=== PATIENT | male | born 1960 | race Caucasian/White ===

== ENCOUNTER → 2020-04-26 11:28 | Outpatient (BNVA) | payer SELFPAY | PROVIDERS: PCP Nurse Practitioner Family; Referring Provider Nurse Practitioner Family; Visit Provider Family Medicine Adult Medicine | DX: M96.1 Postlaminectomy syndrome, not elsewhere classified (principal); I71.9 Aortic aneurysm of unspecified site, without rupture; I10 Essential (primary) hypertension; M47.816 Spondylosis without myelopathy or radiculopathy, lumbar region; F17.200 Nicotine dependence, unspecified, uncomplicated ==

== ENCOUNTER → 2020-05-10 13:17 | Outpatient (BNVA) | payer BC, SELFPAY | PROVIDERS: PCP Nurse Practitioner Family; Visit Provider Family Medicine Adult Medicine | DX: Z76.89 Persons encountering health services in other specified circumstances (principal) ==

== ENCOUNTER → 2020-06-07 11:25 | Outpatient (BNVA) | payer BC, SELFPAY | PROVIDERS: PCP Nurse Practitioner Family; Visit Provider Family Medicine Adult Medicine | DX: Z76.89 Persons encountering health services in other specified circumstances (principal) ==

== ENCOUNTER → 2020-07-05 09:25 | Outpatient (BNVA) | payer BC, SELFPAY | PROVIDERS: Visit Provider Family Medicine Adult Medicine | DX: M47.816 Spondylosis without myelopathy or radiculopathy, lumbar region (principal); M96.1 Postlaminectomy syndrome, not elsewhere classified ==

== ENCOUNTER → 2020-08-04 08:43 | Outpatient (BNVA) | payer BC, SELFPAY | PROVIDERS: Visit Provider Family Medicine Adult Medicine | DX: Z76.89 Persons encountering health services in other specified circumstances (principal) ==

== ENCOUNTER → 2020-09-01 09:16 | Outpatient (BNVA) | payer BC, SELFPAY | PROVIDERS: Visit Provider Anesthesiology | DX: M47.816 Spondylosis without myelopathy or radiculopathy, lumbar region (principal); M96.1 Postlaminectomy syndrome, not elsewhere classified ==

== ENCOUNTER → 2020-09-29 09:50 | Outpatient (BNVA) | payer BC, SELFPAY | PROVIDERS: Visit Provider Family Medicine Adult Medicine ==

== ENCOUNTER → 2020-10-27 08:01 | Outpatient (BNVA) | payer BC, SELFPAY | PROVIDERS: Visit Provider Family Medicine Adult Medicine | DX: M47.816 Spondylosis without myelopathy or radiculopathy, lumbar region (principal); M96.1 Postlaminectomy syndrome, not elsewhere classified ==

== ENCOUNTER → 2020-11-03 11:18 | Outpatient (BNVA) | payer BC, SELFPAY | PROVIDERS: Visit Provider Family Medicine Adult Medicine ==

== ENCOUNTER → 2020-11-10 08:00 | Outpatient (BNVA) | payer BC, SELFPAY | PROVIDERS: Visit Provider Family Medicine Adult Medicine ==

== ENCOUNTER 2020-12-07 11:30 | Outpatient (REF) | payer BC, SELFPAY ==
[2020-12-07 14:20] LABS: Estimated Average Glucose 217 mg/dL; Hemoglobin A1c % 9.2 %
[2020-12-07 14:48] LABS: Alanine Aminotransferase 41 U/L (0-40); Albumin Level 3.7 g/dL (3.5-5.0); Alkaline Phosphatase 92 U/L (39-117); Anion Gap 14 (12-20); Aspartate Amino Transferase 17 U/L (5-37); Bilirubin Total 0.4 mg/dL (0.0-1.0); Blood Urea Nitrogen 27 mg/dL (9-16); Carbon Dioxide 26 mmol/L (22-29); Chloride 95 mmol/L (96-108); Estimated Glomerular Filt Rate 56; Glucose Random 405 mg/dL (60-115); Sodium 130 mmol/L (135-145); Total Protein 6.3 g/dL (6.5-8.0)
[2020-12-07 15:29] LABS: Prostate Specific Antigen 5.27 ng/mL (<0.05-4.0)
== END 2020-12-07 11:31 | disposition home or self-care (01) ==
LOC: HO.HMGCLDS 11:30
PROVIDERS: PCP Nurse Practitioner Family; Visit Provider Nurse Practitioner Family
DX: R30.0 Dysuria (principal); R39.198 Other difficulties with micturition; R81 Glycosuria; Z86.79 Personal history of other diseases of the circulatory system; Z98.890 Other specified postprocedural states; Z12.5 Encounter for screening for malignant neoplasm of prostate
CPT/HCPCS: 36415; 80053; 83036; 84153; 87086; 87088; 87186

== ENCOUNTER 2020-12-12 07:23 | Emergency (ER) | payer BC, SELFPAY ==
[2020-12-12 07:34] VITALS: BP 137/106; PULSE 115; RESP 16; TEMP 36.9; O2SAT 100; BMI 31.3
--- NOTE | 2020-12-12 07:53 | ED.ABDPAIN ---
HPI - Abdominal Pain General Chief Complaint: Abdominal Pain Stated Complaint: VOMITING Time Seen by Provider: 12/12/20 07:53 Source: patient Mode of arrival: ambulatory Limitations: no limitations History of Present Illness HPI narrative: Abdominal pain with N/V since starting Metformin 4 days ago MD elicited complaint: abdominal pain Onset (ago): day(s) Pain Consistency: constant Location: diffuse Severity: moderate Quality: cramping Associated symptoms: nausea and vomiting Related Data Home Medications Medication Instructions Recorded Confirmed aspirin 81 mg tablet,delayed 81 mg PO DAILY 04/26/20 12/07/20 release cholecalciferol (vitamin D3) 50 50 mcg PO DAILY 11/14/20 12/07/20 mcg (2,000 unit) capsule cyanocobalamin (vitamin B-12) 1,000 mcg PO DAILY 11/14/20 12/07/20 1,000 mcg capsule Previous Rx's Medication Instructions Recorded gabapentin 400 mg capsule 400 mg PO TID PRN #90 cap 07/07/20 lisinopril 5 mg tablet 5 mg PO DAILY #90 tab 07/28/20 naloxegol 25 mg tablet 25 mg PO QAM #90 tab 10/27/20 naloxone 4 mg/actuation nasal spray 4 mg INTRANASAL Q2M PRN 1 Days #2 10/27/20 ea buprenorphine 8 mg-naloxone 2 mg 1 film SUBLINGUAL Q12H 30 Days #60 11/03/20 sublingual film ea ibuprofen 800 mg tablet 800 mg PO Q12H 30 Days #60 tab 11/10/20 dexamethasone 4 mg tablet 4 mg PO BID 30 Days #30 tab 11/25/20 baclofen 10 mg tablet 10 mg PO Q8H 90 Days #270 tab 12/05/20 alcohol swabs 1 pad TOPICAL BID 90 Days #100 ea 12/07/20 blood sugar diagnostic #100 ea 12/07/20 blood-glucose meter #1 ea 12/07/20 buspirone 15 mg tablet 15 mg PO BID #30 tab 12/07/20 lancets 28 gauge #100 ea 12/07/20 metformin 500 mg tablet 500 mg PO BID 30 Days #60 tab 12/07/20 simvastatin 40 mg tablet 40 mg PO BEDTIME #90 tab 12/08/20 sulfamethoxazole 800 1 tab PO BID 3 Days #6 tab 12/08/20 mg-trimethoprim 160 mg tablet Allergies Allergy/AdvReac Type Severity Reaction Status Date / Time acetaminophen [From Tylenol] Allergy Unknown nausea/stomach Verified 12/07/20 10:57 pains codeine [Codeine] Allergy Unknown N/V Verified 12/07/20 10:57 Review of Systems Constitutional: Reports no additional constitutional complaints Eyes: Reports no additional eye complaints Denies dizziness Cardiovascular: Reports no additional cardiovascular complaints Respiratory: Reports as per HPI Gastrointestinal: Reports no additional gastrointestinal complaints Musculoskeletal: Reports no additional musculoskeletal complaints Skin/Breast: Denies rash Reports system reviewed and no additional complaints, except as documented, Denies dizziness and Denies Sensory deficit (Neuro) Psychiatric: Denies anxiety Physical Exam Vital Signs: Vital Signs: Last Vital Signs Temp 98.5 F 12/12/20 08:44 Pulse 78 12/12/20 08:44 Resp 17 12/12/20 08:44 BP 154/96 H 12/12/20 08:44 Pulse Ox 97 12/12/20 08:44 Body Mass Index 31.3 Const: General: healthy appearing Nutritional Appearance: average body habitus Orientation/consciousness: oriented to person and patient oriented x3 Limitations: no limitations HENMT: Other: Dry oral pharynx Head: Yes normal to inspection Ears: external ears normal General nose exam: Normal external nose present Mouth: oropharynx normal Throat: Yes posterior oropharynx normal Eyes: General: appearance normal, both eyes and all related structures Neck: Other: supple Neck: Yes normal visual inspection Chest: Chest palpation & inspection: normal inspection of the chest Resp: Auscultation: clear to auscultation bilaterally Cardio: Jugular venous distension: no JVD Rate: regular rate Rhythm: regular rhythm Heart sounds: S1 normal heart sound present and S2 normal heart sound present GI: Inspection: Yes normal to inspection Palpation (GI): Soft to palpation, nontender and No hepatosplenomegaly present Auscultation: normal bowel sounds : General: Yes no CVA tenderness Back/Spine/Pelvis: Back: no CVA tenderness Skin: General skin exam: no rashes or lesions noted Neuro: General: oriented to person and patient oriented x3 Cranial nerves: Yes CN's II-XII intact bilaterally Motor exam (neuro): 5/5 motor strength present throughout Sensory Exam: No Sensory deficit (Neuro) Extrem: General: Yes normal to inspection Psych: Appearance: grossly normal Course Course Course Narrative: patient feeling much better, urinating, abdomen nontender, tolerating po. Will dc on zofran and have patient stop metformin MDM - Abdominal Pain Lab Data Result diagrams: 12/12/20 08:14 12/12/20 08:14 Labs: Lab Results 12/12/20 12/12/20 Range/Units 08:14 08:14 WBC 15.3 H (4.8-10.8) X10*3/uL RBC 5.55 (4.60-5.80) X10*6/uL Hgb 16.7 (14.0-18.0) g/dl Hct 47.2 (42-52) % MCV 85.0 (80-98) fL MCH 30.1 (27.0-33.0) pg MCHC 35.4 (31.0-36.0) g/dl RDW 13.0 (11.0-16.0) % Plt Count 257 (160-400) X10*3/uL MPV 9.3 L (9.4-12.4) fL Immature Gran % (Auto) 1.0 H (0.0-0.4) % Neut % (Auto) 73.3 H (45-73) % Lymph % (Auto) 19.2 L (20-40) % Luna % (Auto) 6.2 (2-11) % Eos % (Auto) 0.2 (0-4) % Baso % (Auto) 0.1 (0-2) % Lymph # (Auto) 2.9 (1.2-4.9) X10*3/uL Luna # (Auto) 1.0 (0.1-1.2) X10*3/uL Eos # (Auto) 0.0 (0.0-0.4) X10*3/uL Baso # (Auto) 0.0 (0.0-0.2) X10*3/uL Abs Immat Gran (auto) 0.15 H (0.00-0.03) X10*3/uL Absolute Neuts (auto) 11.2 H (2.0-8.3) X10*3/uL Absolute Nucleated RBC 0.000 (0.0-0.012) X10*3/uL Nucleated RBC % (auto) 0.0 (0.0-0.2) /100WBC Sodium 129 L (135-145) mmol/L Potassium 4.4 (3.3-5.1) mmol/L Chloride 96 (96-108) mmol/L Carbon Dioxide 22 (22-29) mmol/L Anion Gap 15 (12-20) BUN 23 H (9-16) mg/dL Creatinine 1.26 (0.5-1.4) mg/dL Estim Creat Clear Calc 77.0 Estimated GFR 58 Random Glucose 230 H D (60-115) mg/dL Calcium 9.3 (8.4-10.2) mg/dL Total Bilirubin 1.1 H (0.0-1.0) mg/dL Direct Bilirubin 0.4 (0.0-0.5) mg/dL AST 20 (5-37) U/L ALT 43 H (0-40) U/L Alkaline Phosphatase 89 (39-117) U/L Total Protein 6.5 (6.5-8.0) g/dL Albumin 3.8 (3.5-5.0) g/dL Lipase 50 (8-78) U/L Discharge Plan Discharge Clinical Impression: Medication adverse effect Qualifiers: Encounter type: initial encounter Qualified Code(s): T50.905A - Adverse effect of unspecified drugs, medicaments and biological substances, initial encounter Patient Disposition: Home, Self-Care Additional Instructions: stop metformin and discuss with your doctor Prescriptions: No Action gabapentin 400 mg capsule 400 mg PO TID PRN (Reason: for pain) Qty: 90 RF: 3 lisinopril 5 mg tablet 5 mg PO DAILY Qty: 90 RF: 1 Movantik 25 mg tablet 25 mg PO QAM Qty: 90 RF: 0 dexamethasone 4 mg tablet 4 mg PO BID 30 Days Qty: 30 RF: 0 baclofen 10 mg tablet 10 mg PO Q8H 90 Days Qty: 270 RF: 1 (DME) blood-glucose meter [FreeStyle Lite Meter] Kit See Rx Instructions .ROUTE .MEDSUPPLY Qty: 1 RF: 0 (DME) FreeStyle Lite Strips Strip See Rx Instructions .ROUTE .MEDSUPPLY Qty: 100 RF: 1 (DME) lancets [FreeStyle Lancets] 28 gauge misc See Rx Instructions .ROUTE .MEDSUPPLY Qty: 100 RF: 1 alcohol swabs [Alcohol Prep Pads] Pads, Medicated 1 pad topical BID 90 Days Qty: 100 RF: 1 metformin 500 mg tablet 500 mg PO BID 30 Days Qty: 60 RF: 1 simvastatin 40 mg tablet 40 mg PO BEDTIME Qty: 90 RF: 0 sulfamethoxazole-trimethoprim [Bactrim DS] 800-160 mg tablet 1 tab PO BID 3 Days Qty: 6 RF: 0 cholecalciferol (vitamin D3) 50 mcg (2,000 unit) capsule 50 mcg PO DAILY RF: 0 cyanocobalamin (vitamin B-12) 1,000 mcg capsule 1,000 mcg PO DAILY RF: 0 buspirone 15 mg tablet 15 mg PO BID Qty: 30 RF: 3 Narcan 4 mg/actuation spray,non-aerosol 4 mg intranasal Q2M PRN (Reason: opioid overdose) 1 Days Qty: 2 RF: 1 aspirin [Adult Aspirin Regimen] 81 mg tablet,delayed release (DR/EC) 81 mg PO DAILY RF: 0 buprenorphine-naloxone 8-2 mg film 1 film sublingual Q12H 30 Days Qty: 60 RF: 1 ibuprofen 800 mg tablet 800 mg PO Q12H 30 Days Qty: 60 RF: 1 Referrals: Silvano Tejada, DIONE- [Primary Care Provider] - 2 days [facility] Past Medical History Medical History Aneurysm Epilepsia Failed back syndrome, lumbar HTN (hypertension) Lumbar spondylosis Smoker Surgical History H/O shoulder surgery History of cholecystectomy Previous back surgery Family History Family History Father Brain aneurysm Mother Cirrhosis Sister History of quadruple bypass Diabetes mellitus Brother No problems noted. Brother No problems noted. Brother No problems noted. 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
[2020-12-12] MEDS: ondansetron HCL 4 MG/2 ML VIAL IVPUSH (08:17)
[2020-12-12] MEDS: 0.9 % Sodium Chloride 1,000 ML 999 ML IVCONT ×2 (08:18→09:28)
[2020-12-12 08:19] LABS: MANUAL DIFF FLAG NO
[2020-12-12 08:35] LABS: Basophils Percent Auto 0.1 % (0-2); Eosinophils Percent Auto 0.2 % (0-4); Hematocrit 47.2 % (42-52); Hemoglobin 16.7 g/dl (14.0-18.0); Imm Gran Abs Auto 0.15 X10*3/uL (0.00-0.03); Lymphocytes Absolute Auto 2.9 X10*3/uL (1.2-4.9); Lymphocytes Percent Auto 19.2 % (20-40); Mean Corpuscular HGB Conc 35.4 g/dl (31.0-36.0); Mean Corpuscular Hemoglobin 30.1 pg (27.0-33.0); Mean Platelet Volume 9.3 fL (9.4-12.4); Monocytes Percent Auto 6.2 % (2-11); Neutrophils Absolute Auto 11.2 X10*3/uL (2.0-8.3); Neutrophils Percent Auto 73.3 % (45-73); Platelet Count 257 X10*3/uL (160-400); Red Blood Count 5.55 X10*6/uL (4.60-5.80); White Blood Count 15.3 X10*3/uL (4.8-10.8)
[2020-12-12 08:44] VITALS: BP 154/96; PULSE 78; RESP 17; TEMP 36.9; O2SAT 97
[2020-12-12 08:46] LABS: Alanine Aminotransferase 43 U/L (0-40); Albumin Level 3.8 g/dL (3.5-5.0); Alkaline Phosphatase 89 U/L (39-117); Anion Gap 15 (12-20); Aspartate Amino Transferase 20 U/L (5-37); Bilirubin Direct 0.4 mg/dL (0.0-0.5); Bilirubin Total 1.1 mg/dL (0.0-1.0); Blood Urea Nitrogen 23 mg/dL (9-16); Calcium 9.3 mg/dL (8.4-10.2); Carbon Dioxide 22 mmol/L (22-29); Chloride 96 mmol/L (96-108); Estimated Glomerular Filt Rate 58; Glucose Random 230 mg/dL (60-115); Lipase 50 U/L (8-78); Potassium 4.4 mmol/L (3.3-5.1); Sodium 129 mmol/L (135-145); Total Protein 6.5 g/dL (6.5-8.0)
== END 2020-12-12 11:18 | disposition home or self-care (01) ==
PROVIDERS: Emergency Provider Emergency Medicine; PCP Nurse Practitioner Family
DX: R11.2 Nausea with vomiting, unspecified (principal); R10.9 Unspecified abdominal pain; T38.3X5A Adverse effect of insulin and oral hypoglycemic [antidiabetic] drugs, initial encounter; Y92.039 Unspecified place in apartment as the place of occurrence of the external cause; E11.9 Type 2 diabetes mellitus without complications; I10 Essential (primary) hypertension; F17.210 Nicotine dependence, cigarettes, uncomplicated
CPT/HCPCS: 36415; 80048; 80076; 83690; 85025; 96361; 96374; 99284; J2405

== ENCOUNTER → 2020-12-20 09:19 | Outpatient (BNVA) | payer BC, SELFPAY | PROVIDERS: PCP Nurse Practitioner Family; Visit Provider Family Medicine Adult Medicine ==

== ENCOUNTER → 2021-01-17 09:25 | Outpatient (BNVA) | payer BC, SELFPAY | PROVIDERS: PCP Nurse Practitioner Family; Visit Provider Family Medicine Adult Medicine | DX: M47.816 Spondylosis without myelopathy or radiculopathy, lumbar region (principal); M96.1 Postlaminectomy syndrome, not elsewhere classified ==

== ENCOUNTER 2021-02-08 15:34 | Emergency (ER) | payer BC, SELFPAY ==
--- NOTE | ~2021-02-08 | US_ITS ---
EXAMINATION: US SCROTUM CLINICAL INFORMATION: Rule out torsion. Pain and swelling.. COMPARISON: None TECHNIQUE: A sonogram of the scrotum was performed assessing eisenberg-scale appearance and color Doppler flow. Spectral Doppler analysis of the arterial and venous flow were performed in the testes bilaterally. FINDINGS: RIGHT: Right testicle measures 3.7 x 3.4 x 3.2 cm, volume 21 mL. No focal testicular parenchymal lesions are visualized. Spectral Doppler analysis of the arterial and venous flow is normal in the right testis. The right epididymis is enlarged and hypervascular suggestive of epididymitis. There is a small right hydrocele. There is no right varicocele. LEFT: Left testicle measures 3.5 x 2.7 x 3.3 cm, volume 16 mL. No focal testicular parenchymal lesions are visualized. Spectral Doppler analysis of the arterial and venous flow is normal in the left testis. Left epididymal head is normal in size. No left hydrocele or varicocele is seen. Left epididymal Doppler flow is normal. US/US scrotum doppler IMPRESSION: No evidence of torsion. Right epididymitis and small right hydrocele.
[2021-02-08 15:40] VITALS: BP 141/84; PULSE 114; RESP 22; TEMP 36.7; O2SAT 97; BMI 36.6
--- NOTE | 2021-02-08 19:05 | ED_ITS ---
HPI - Male Genitourinary General Chief complaint: Urogenital-Male Stated complaint: Groin pain Time Seen by Provider: 02/08/21 19:05 Related Data Home Medications Medication Instructions Recorded Confirmed aspirin 81 mg tablet,delayed 81 mg PO DAILY 04/26/20 01/12/21 release cyanocobalamin (vitamin B-12) 1,000 mcg PO DAILY 11/14/20 01/12/21 1,000 mcg capsule cholecalciferol (vitamin D3) 50 50 mcg PO DAILY 01/12/21 01/12/21 mcg (2,000 unit) capsule famotidine 20 mg tablet 20 mg PO DAILY 01/12/21 01/12/21 Previous Rx's Medication Instructions Recorded gabapentin 400 mg capsule 400 mg PO TID PRN #90 cap 07/07/20 naloxone 4 mg/actuation nasal spray 4 mg INTRANASAL Q2M PRN 1 Days #2 10/27/20 ea alcohol swabs 1 pad TOPICAL BID 90 Days #100 ea 12/07/20 blood sugar diagnostic #100 ea 12/07/20 blood-glucose meter #1 ea 12/07/20 lancets 28 gauge #100 ea 12/07/20 simvastatin 40 mg tablet 40 mg PO BEDTIME #90 tab 12/08/20 cyclobenzaprine 10 mg tablet 10 mg PO TID 30 Days #90 tab 12/26/20 ibuprofen 800 mg tablet 800 mg PO Q12H 30 Days #60 tab 01/02/21 glipizide 5 mg tablet 5 mg PO BID 30 Days #60 tab 01/04/21 hydroxyzine HCl 50 mg tablet 50 mg PO BID PRN 30 Days #60 tab 01/12/21 buprenorphine HCl 75 mcg buccal 75 mcg BUCCAL Q12H 30 Days #60 ea 01/17/21 film oxycodone 5 mg tablet 5 mg PO Q12H PRN 30 Days #60 tab 01/17/21 lisinopril 5 mg tablet 5 mg PO DAILY #90 tab 01/24/21 naloxegol 25 mg tablet 25 mg PO QAM #90 tab 01/24/21 ibuprofen 600 mg PO Q8H PRN #20 tab 02/08/21 levofloxacin 500 mg PO DAILY #10 tab 02/08/21 tamsulosin [Flomax] 0.4 mg PO BEDTIME #5 cap 02/08/21 Allergies Allergy/AdvReac Type Severity Reaction Status Date / Time acetaminophen [From Tylenol] Allergy Unknown nausea/stomach Verified 02/08/21 15:42 pains codeine [Codeine] Allergy Unknown N/V Verified 02/08/21 15:42 Review of Systems Review of Systems: Constitutional : No Weight loss, No Fever, No Chills, No Night Sweats, No Fatigue, No Malaise ENT/Mouth : No Hearing loss, No Ear Pain, No Nasal Congestion, No Sinus Pain, No Hoarseness, No sore throat, No Rhinorrhea, No Swallowing Difficulty Eyes: No Eye Pain, No Swelling, No Redness, No Foreign Body, No Discharge, No Vision Changes Cardiovascular : No Chest Pain, No SOB, Respiratory : No Cough, No Sputum, No Wheezing, Gastrointestinal : No Nausea, No Vomiting, No Diarrhea, No Constipation, No abdominal Pain, Genitourinary : no irregular bleeding, No Dysuria, No Urinary Frequency, No Hematuria, No Urinary Incontinence, No Urgency, No Flank Pain, No Urinary Flow Changes, No Hesitancy Musculoskeletal : No joint pain, No Myalgias, No Joint Swelling Skin : No Skin Lesions, No rash Neuro : No Weakness, No Numbness, No Paresthesias, No Loss of Consciousness, No Dizziness, No Headache Psych : No Anxiety/Panic, No Depression, No SI/HI/AH/VH, No Social Issues, Heme/Lymph: No Bruising, No Bleeding,No Lymphadenopathy Endocrine : No Polyuria, No Polydipsia, No Temperature Intolerance Yes all other systems are reviewed and are negative FOR[facility]LY [facility] Past Medical History Medical History AAA (abdominal aortic aneurysm) Aneurysm Epilepsia Failed back syndrome, lumbar HTN (hypertension) Lumbar spondylosis Smoker Surgical History H/O shoulder surgery History of cholecystectomy Previous back surgery Family History Family History Father Brain aneurysm Mother Cirrhosis Sister History of quadruple bypass Diabetes mellitus Brother No problems noted. Brother No problems noted. Brother No problems noted. 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 Physical Exam Vital Signs: Vital Signs: Last Vital Signs Temp 98.0 F 02/08/21 15:40 Pulse 114 H 02/08/21 15:40 Resp 22 H 02/08/21 15:40 BP 141/84 H 02/08/21 15:40 Pulse Ox 97 02/08/21 15:40 Body Mass Index 36.6 Const: General: healthy appearing, no acute distress and well developed Nutritional Appearance: well nourished Orientation/consciousness: patient oriented x3 Neck: Neck: Yes normal visual inspection, Yes full ROM and Yes trachea midline Thyroid: Thyroid normal Resp: Auscultation: clear to auscultation bilaterally Cardio: Rate: regular rate Rhythm: regular rhythm GI: Inspection: Yes normal to inspection and No distended Palpation (GI): No hepatosplenomegaly present Auscultation: normal bowel sounds : General: Yes no CVA tenderness Scrotum: edematous and Hydrocele present Back/Spine/Pelvis: Back: no CVA tenderness Skin: General skin exam: elasticity normal, turgor normal and dry skin Neuro: General: patient oriented x3 Course Course Course Narrative: 60 years old male with past medical history of diabetes, lumbar spondylosis, hypertension, difficulty urinating, status post AAA repair is here today for complaining of right testicle swelling and pain. Will send patient for ultrasound to rule out torsion. Patient denies any other symptoms except for difficulty urinating. He reports that he has appointment with his urologist in February. He states that he was diagnosed with enlarged prostate by his PCP. Differential diagnosis epididymitis, bacterial infection, hydrocele or testicular torsion. Reevaluation(s) Reevaluation #1: Ultrasound negative for Testicular torsion, epididymitis and hydrocele. Will medicate patient with levofloxacin and ibuprofen. Patient will also get Flomax for difficulty the of urinating. He will follow up with urologist tomorrow. I will give him script for Flomax for 5 days as well as script for levofloxacin for 10 days. He can take ibuprofen for pain and inflammation. He is agreeable to plan of care and verbalizes understanding of instructions. He was given the opportunity to ask questions and all questions answered. MDM - Male Genitourinary Imaging Data scrotal ultrasound: Radiologist's impression: FINDINGS: RIGHT: Right testicle measures 3.7 x 3.4 x 3.2 cm, volume 21 mL. No focal testicular parenchymal lesions are visualized. Spectral Doppler analysis of the arterial and venous flow is normal in the right testis. The right epididymis is enlarged and hypervascular suggestive of epididymitis. There is a small right hydrocele. There is no right varicocele. LEFT: Left testicle measures 3.5 x 2.7 x 3.3 cm, volume 16 mL. No focal testicular parenchymal lesions are visualized. Spectral Doppler analysis of the arterial and venous flow is normal in the left testis. Left epididymal head is normal in size. No left hydrocele or varicocele is seen. Left epididymal Doppler flow is normal. Discharge Plan Discharge Clinical Impression: Difficulty urinating, Epididymitis Hydrocele Qualifiers: Hydrocele type: unspecified Qualified Code(s): N43.3 - Hydrocele, unspecified Patient Disposition: Home, Self-Care Instructions: Epididymitis (ED), Scrotal Pain (ED) Additional Instructions: You were seen here today for right scrotal pain. Ultrasound was negative for torsion they found to infection that needs to be treated with antibiotics. He received 1st dose in the emergency department. You also received medication that will help you urinate and anti-inflammatory medication to help with pain and decrease the swelling. He will be giving a dose of antibiotic for 10 days. I will also give you medication that will help you increase your urine flow. Please follow-up with urologist tomorrow for appointment in the next 2-3 days. However if your symptoms will not get better or if you will develop any additional concerning symptoms please return to emergency department. Prescriptions: New levofloxacin 500 mg tablet 500 mg PO DAILY Qty: 10 RF: 0 tamsulosin [Flomax] 0.4 mg capsule 0.4 mg PO BEDTIME Qty: 5 RF: 0 ibuprofen 600 mg tablet 600 mg PO Q8H PRN (Reason: pain) Qty: 20 RF: 0 No Action gabapentin 400 mg capsule 400 mg PO TID PRN (Reason: for pain) Qty: 90 RF: 3 (DME) blood-glucose meter [FreeStyle Lite Meter] Kit See Rx Instructions .ROUTE .MEDSUPPLY Qty: 1 RF: 0 (DME) FreeStyle Lite Strips Strip See Rx Instructions .ROUTE .MEDSUPPLY Qty: 100 RF: 1 (DME) lancets [FreeStyle Lancets] 28 gauge misc See Rx Instructions .ROUTE .MEDSUPPLY Qty: 100 RF: 1 alcohol swabs [Alcohol Prep Pads] Pads, Medicated 1 pad topical BID 90 Days Qty: 100 RF: 1 simvastatin 40 mg tablet 40 mg PO BEDTIME Qty: 90 RF: 0 ibuprofen 800 mg tablet 800 mg PO Q12H 30 Days Qty: 60 RF: 1 glipizide 5 mg tablet 5 mg PO BID 30 Days Qty: 60 RF: 2 hydroxyzine HCl 50 mg tablet 50 mg PO BID PRN (Reason: anxiety) 30 Days Qty: 60 RF: 3 lisinopril 5 mg tablet 5 mg PO DAILY Qty: 90 RF: 0 Movantik 25 mg tablet 25 mg PO QAM Qty: 90 RF: 0 cyanocobalamin (vitamin B-12) 1,000 mcg capsule 1,000 mcg PO DAILY RF: 0 cholecalciferol (vitamin D3) 50 mcg (2,000 unit) capsule 50 mcg PO DAILY RF: 0 famotidine 20 mg tablet 20 mg PO DAILY RF: 0 Narcan 4 mg/actuation spray,non-aerosol 4 mg intranasal Q2M PRN (Reason: opioid overdose) 1 Days Qty: 2 RF: 1 cyclobenzaprine 10 mg tablet 10 mg PO TID 30 Days Qty: 90 RF: 1 oxycodone 5 mg tablet 5 mg PO Q12H PRN (Reason: pain) 30 Days Qty: 60 RF: 0 [place] 75 mcg film 75 mcg buccal Q12H 30 Days Qty: 60 RF: 0 aspirin [Adult Aspirin Regimen] 81 mg tablet,delayed release (DR/EC) 81 mg PO DAILY RF: 0 Referrals: Cristhian Rodriguez MD [Physician] - 2 days Stand Alone Forms: Work/School Release Interventions: ED Discharge Assessment Last Done: 02/08/21 20:07 Discharge Date/Time: 02/08/21 20:08
[2021-02-08] MEDS: Tamsulosin HCL 0.4 MG CAPSULE PO (20:00)
[2021-02-08] MEDS: Ibuprofen 600 MG TABLET PO (20:00)
[2021-02-08] MEDS: levoFLOXacin 500 MG TABLET PO (20:03)
== END 2021-02-08 20:08 | disposition home or self-care (01) ==
PROVIDERS: Emergency Provider Emergency Medicine; PCP Nurse Practitioner Family
DX: N45.1 Epididymitis (principal); N43.3 Hydrocele, unspecified; N40.0 Benign prostatic hyperplasia without lower urinary tract symptoms; I10 Essential (primary) hypertension; E11.9 Type 2 diabetes mellitus without complications; Z79.82 Long term (current) use of aspirin; Z79.899 Other long term (current) drug therapy
CPT/HCPCS: 93975; 99283; 99284

== ENCOUNTER → 2021-02-16 09:21 | Outpatient (BNVA) | payer BC, SELFPAY | PROVIDERS: PCP Nurse Practitioner Family; Visit Provider Family Medicine Adult Medicine ==

== ENCOUNTER 2021-03-16 10:06 | Outpatient (REF) | payer BC, SELFPAY ==
[2021-03-16 17:03] LABS: Glucose Urine UA NEG (NEG); Leukocyte Esterase Urine 1+ (NEG); Nitrite Urine NEG (NEG); UACC Culture Trigger YES; Urine Blood NEG (NEG); Urine Ketones NEG (NEG); Urine Protein NEG (NEG-TRACE)
[2021-03-16 17:10] LABS: Estimated Average Glucose 120 mg/dL; Hemoglobin A1c % 5.8 %
[2021-03-16 17:13] LABS: Appearance Urine CLEAR; Color Urine YELLOW
[2021-03-16 17:31] LABS: Oval Fat Bodies Urine NOTED; RBC Urine 0 /HPF (0); Squamous Epithelial Cell Urine 1+ /LPF
[2021-03-16 17:41] LABS: Creatinine Urine 189.37 mg/dL; Microalbum/Creatinine Ratio Ur 10.5 ug/mg cr
[2021-03-16 17:45] LABS: Alanine Aminotransferase 15 U/L (0-40); Alkaline Phosphatase 80 U/L (39-117); Anion Gap 13 (12-20); Aspartate Amino Transferase 19 U/L (5-37); Bilirubin Total 0.7 mg/dL (0.0-1.0); Blood Urea Nitrogen 15 mg/dL (9-16); Calcium 9.1 mg/dL (8.4-10.2); Carbon Dioxide 28 mmol/L (22-29); Chloride 103 mmol/L (96-108); Cholesterol 151 mg/dL; Estimated Glomerular Filt Rate > 60; Glucose Fasting 93 mg/dL (60-99); HDL Cholesterol 42 mg/dL; LDL Cholesterol Calculated 90 mg/dl; Potassium 4.9 mmol/L (3.3-5.1); Sodium 139 mmol/L (135-145); Triglycerides 98 mg/dL
[2021-03-16 17:59] LABS: Prostate Specific Antigen Scr 1.89 ng/mL (<0.05-4.0); TSH reflex Free T4 0.69 uIU/mL (0.32-4.0)
[2021-03-16 18:05] LABS: Prostate Specific Antigen 1.75 ng/mL (<0.05-4.0)
[2021-03-23 21:26] LABS: Testosterone, Free 54.3 pg/mL (35.0-155.0); Testosterone, Total 485 ng/dL (250-1100)
== END 2021-03-16 10:07 | disposition home or self-care (01) ==
LOC: HO.HMGCLDS 10:06
PROVIDERS: PCP Nurse Practitioner Family; Visit Provider Urology
DX: R97.20 Elevated prostate specific antigen [PSA] (principal); E29.1 Testicular hypofunction; Z12.5 Encounter for screening for malignant neoplasm of prostate; Z00.00 Encounter for general adult medical examination without abnormal findings; E11.9 Type 2 diabetes mellitus without complications; N40.1 Benign prostatic hyperplasia with lower urinary tract symptoms; N13.8 Other obstructive and reflux uropathy
CPT/HCPCS: 36415; 80053; 80061; 81001; 81003; 82043; 83036; 84153; 84402; 84403; 84443; 87086

== ENCOUNTER → 2021-03-21 10:17 | Outpatient (BNVA) | payer BC, SELFPAY | PROVIDERS: PCP Nurse Practitioner Family; Visit Provider Family Medicine Adult Medicine | DX: M47.816 Spondylosis without myelopathy or radiculopathy, lumbar region (principal); M96.1 Postlaminectomy syndrome, not elsewhere classified ==

== ENCOUNTER → 2021-04-18 08:24 | Outpatient (BNVA) | payer BC, SELFPAY | PROVIDERS: PCP Nurse Practitioner Family; Visit Provider Family Medicine Adult Medicine | DX: M47.816 Spondylosis without myelopathy or radiculopathy, lumbar region (principal); M96.1 Postlaminectomy syndrome, not elsewhere classified ==

== ENCOUNTER 2021-05-16 08:53 | Outpatient (REF) | payer BC, SELFPAY ==
[2021-05-16 10:41] LABS: MANUAL DIFF FLAG NO
[2021-05-16 11:13] LABS: Appearance Urine CLEAR; Color Urine YELLOW; Glucose Urine UA NEG (NEG); Leukocyte Esterase Urine NEG (NEG); Nitrite Urine NEG (NEG); Urine Blood NEG (NEG); Urine Ketones NEG (NEG); Urine Protein NEG (NEG-TRACE)
[2021-05-16 11:17] LABS: Basophils Percent Auto 0.2 % (0-2); Eosinophils Absolute Auto 0.1 X10*3/uL (0.0-0.4); Eosinophils Percent Auto 1.1 % (0-4); Hematocrit 43.3 % (42-52); Hemoglobin 14.3 g/dl (14.0-18.0); Imm Gran Abs Auto 0.05 X10*3/uL (0.00-0.03); Imm Gran Pct Auto 0.4 % (0.0-0.4); Lymphocytes Absolute Auto 1.9 X10*3/uL (1.2-4.9); Lymphocytes Percent Auto 16.9 % (20-40); Mean Corpuscular Hemoglobin 28.9 pg (27.0-33.0); Mean Corpuscular Volume 87.5 fL (80-98); Mean Platelet Volume 9.7 fL (9.4-12.4); Monocytes Absolute Auto 0.9 X10*3/uL (0.1-1.2); Monocytes Percent Auto 7.9 % (2-11); Neutrophils Absolute Auto 8.3 X10*3/uL (2.0-8.3); Neutrophils Percent Auto 73.5 % (45-73); Platelet Count 260 X10*3/uL (160-400); Red Blood Count 4.95 X10*6/uL (4.60-5.80); Red Cell Distribution Width 13.9 % (11.0-16.0); White Blood Count 11.3 X10*3/uL (4.8-10.8)
[2021-05-16 12:16] LABS: Prostate Specific Antigen 1.54 ng/mL (<0.05-4.0)
[2021-05-16 12:22] LABS: Alanine Aminotransferase 11 U/L (0-40); Albumin Level 4.2 g/dL (3.5-5.0); Alkaline Phosphatase 88 U/L (39-117); Anion Gap 13 (12-20); Aspartate Amino Transferase 17 U/L (5-37); Bilirubin Total 0.6 mg/dL (0.0-1.0); Blood Urea Nitrogen 12 mg/dL (9-16); Calcium 9.1 mg/dL (8.4-10.2); Carbon Dioxide 27 mmol/L (22-29); Chloride 105 mmol/L (96-108); Estimated Glomerular Filt Rate > 60; Glucose Random 114 mg/dL (60-115); Potassium 4.6 mmol/L (3.3-5.1); Sodium 140 mmol/L (135-145); Total Protein 7.2 g/dL (6.5-8.0)
[2021-05-17 08:07] LABS: SARS COV2 IgG Negative (Negative)
[2021-05-20 11:36] LABS: Testosterone, Total 484 ng/dL (250-1100)
== END 2021-05-16 08:54 | disposition home or self-care (01) ==
LOC: HO.LAB 08:53
PROVIDERS: Absent Provider Urology; PCP Nurse Practitioner Family; Visit Provider Family Medicine Adult Medicine
DX: Z00.00 Encounter for general adult medical examination without abnormal findings (principal); Z12.5 Encounter for screening for malignant neoplasm of prostate; Z20.822 Contact with and (suspected) exposure to COVID-19; E29.1 Testicular hypofunction; N13.8 Other obstructive and reflux uropathy; N40.1 Benign prostatic hyperplasia with lower urinary tract symptoms; M47.816 Spondylosis without myelopathy or radiculopathy, lumbar region; R10.9 Unspecified abdominal pain; Z86.79 Personal history of other diseases of the circulatory system; Z98.890 Other specified postprocedural states
CPT/HCPCS: 36415; 80053; 81003; 84153; 84403; 85025; 86769

== ENCOUNTER → 2021-05-18 08:46 | Outpatient (BNVA) | payer BC, SELFPAY | PROVIDERS: PCP Nurse Practitioner Family; Visit Provider Urology ==

== ENCOUNTER → 2021-06-22 09:48 | Outpatient (BNVA) | payer BC, SELFPAY | PROVIDERS: PCP Nurse Practitioner Family; Visit Provider Family Medicine Adult Medicine ==

== ENCOUNTER → 2021-07-20 09:05 | Outpatient (BNVA) | payer BC, SELFPAY | PROVIDERS: PCP Nurse Practitioner Family; Visit Provider Family Medicine Adult Medicine ==

== ENCOUNTER → 2021-08-10 08:56 | Outpatient (BNVA) | payer BC, SELFPAY | PROVIDERS: PCP Nurse Practitioner Family; Visit Provider Anesthesiology ==

== ENCOUNTER → 2021-08-18 08:26 | Outpatient (BNVA) | payer BC, SELFPAY | PROVIDERS: PCP Nurse Practitioner Family; Visit Provider Internal Medicine ==

== ENCOUNTER → 2021-09-15 08:46 | Outpatient (BNVA) | payer BC, SELFPAY | PROVIDERS: PCP Nurse Practitioner Family; Visit Provider Nurse Practitioner Family ==

== ENCOUNTER 2021-09-21 07:19 | Outpatient (REF) | payer BC, SELFPAY ==
--- NOTE | ~2021-09-21 | MR_ITS ---
EXAMINATION: MR LUMBAR SPINE WITHOUT CONTRAST CLINICAL INFORMATION: Spondylosis without myelopathy. COMPARISON: Lumbar spine MRI from 10/11/2017. TECHNIQUE: MRI of the lumbar spine was obtained using routine sequences without contrast. FINDINGS: Mild degenerative grade 1 anterolisthesis of L4 on L5. Moderate degenerative retrolisthesis of L5 on S1. Otherwise, normal anatomic alignment. Moderate degenerative disc disease from L2-S1 (worst at L5-S1). Mild degenerative disc disease at all additional levels. Associated mixed Modic type discogenic endplate changes including Modic type I discogenic edema at L5-S1. Moderate marrow edema within the posterior elements of L4 and L5 consistent with degenerative stress reaction. No additional suspicious marrow edema. The vertebral body heights are largely maintained. The conus medullaris terminates at the level of L2. The distal spinal cord is normal in appearance. No significant abnormalities of the paraspinal musculature. Limited evaluation of the intra-abdominal structures without significant abnormalities. The abdominal aorta is of normal contour and caliber. AXIAL SPINAL LEVELS: T12-L1: Normal annular contour. There is mild bilateral facet joint arthropathy. There is no neural foraminal stenosis. There is no spinal canal stenosis. L1-L2: Shallow diffuse disc bulge. There is mild bilateral facet joint arthropathy. There is mild right and no left neural foraminal stenosis. There is no spinal canal stenosis. L2-L3: Mild diffuse disc bulge. There is moderate bilateral facet joint arthropathy. There is mild bilateral neural foraminal stenosis. There is mild narrowing of the spinal canal. L3-L4: Mild diffuse disc bulge. There is moderate bilateral facet joint arthropathy with ligamentum flavum hypertrophy. There is moderate bilateral neural foraminal stenosis. There is narrowing of the subarticular zones with mild spinal canal stenosis centrally. L4-L5: Moderate diffuse disc bulge exacerbated by uncovering from anterolisthesis. There is severe bilateral facet joint arthropathy. There is moderate to severe bilateral neural foraminal stenosis. There is stenosis of the subarticular zones with moderate to severe spinal canal stenosis centrally. L5-S1: Moderate diffuse disc bulge with posterior osseous ridging. There is severe left and moderate right facet joint arthropathy. There is severe bilateral neural foraminal stenosis. There is stenosis of the subarticular zones with no overt spinal canal stenosis centrally. MR/MR lumbar spine wo con IMPRESSION: Moderate to advanced multilevel degenerative spondyloarthropathy of the lumbar spine as described in detail above. Most notably, there is moderate to severe spinal canal stenosis at L4-L5. Mild spinal canal stenosis at L3-L4. Narrowing/stenoses of the subarticular zones and moderate to severe neural foraminal stenoses from L3-S1. Edema within the posterior elements of L4 and L5 suggestive of degenerative stress reaction. Overall, degenerative changes are mildly progressed compared to exam from 2018.
== END 2021-09-21 07:20 | disposition home or self-care (01) ==
LOC: HO.MRI 07:19
PROVIDERS: Visit Provider Anesthesiology
DX: M47.816 Spondylosis without myelopathy or radiculopathy, lumbar region (principal); M48.061 Spinal stenosis, lumbar region without neurogenic claudication
CPT/HCPCS: 72148

== ENCOUNTER 2021-10-10 11:03 | Outpatient (REF) | payer BC, SELFPAY ==
[2021-10-10 14:00] LABS: Estimated Average Glucose 143 mg/dL; Hemoglobin A1c % 6.6 %
[2021-10-10 14:03] LABS: Alanine Aminotransferase 16 U/L (0-40); Albumin Level 4.3 g/dL (3.5-5.0); Alkaline Phosphatase 85 U/L (39-117); Anion Gap 16 (12-20); Aspartate Amino Transferase 26 U/L (5-37); Bilirubin Total 0.8 mg/dL (0.0-1.0); Blood Urea Nitrogen 19 mg/dL (9-16); Calcium 9.4 mg/dL (8.4-10.2); Carbon Dioxide 26 mmol/L (22-29); Chloride 105 mmol/L (96-108); Cholesterol 142 mg/dL; Estimated Glomerular Filt Rate 44; Glucose Fasting 92 mg/dL (60-99); HDL Cholesterol 42 mg/dL; LDL Cholesterol Calculated 88 mg/dl; Potassium 5.1 mmol/L (3.3-5.1); Sodium 142 mmol/L (135-145); Total Protein 7.4 g/dL (6.5-8.0); Triglycerides 64 mg/dL
[2021-10-10 14:26] LABS: TSH reflex Free T4 1.34 uIU/mL (0.32-4.0)
== END 2021-10-10 11:04 | disposition home or self-care (01) ==
LOC: HO.HMGCLDS 11:03
PROVIDERS: Visit Provider Nurse Practitioner Family
DX: E11.9 Type 2 diabetes mellitus without complications (principal)
CPT/HCPCS: 36415; 80053; 80061; 83036; 84443

== ENCOUNTER → 2021-10-13 08:49 | Outpatient (BNVA) | payer BC, SELFPAY | PROVIDERS: PCP Nurse Practitioner Family; Visit Provider Nurse Practitioner Family | DX: M96.1 Postlaminectomy syndrome, not elsewhere classified (principal); M48.061 Spinal stenosis, lumbar region without neurogenic claudication; M47.816 Spondylosis without myelopathy or radiculopathy, lumbar region; R15.0 Incomplete defecation; F17.210 Nicotine dependence, cigarettes, uncomplicated; Z79.891 Long term (current) use of opiate analgesic | CPT/HCPCS: 99212 ==

== ENCOUNTER 2021-10-13 10:03 | Outpatient (REF) | payer BC, SELFPAY ==
[2021-10-13 11:32] LABS: Appearance Urine HAZY; Color Urine YELLOW; Glucose Urine UA NEG (NEG); Leukocyte Esterase Urine NEG (NEG); Nitrite Urine NEG (NEG); Urine Blood NEG (NEG); Urine Ketones NEG (NEG); Urine Protein NEG (NEG-TRACE)
[2021-10-13 12:47] LABS: Creatinine Urine 41.83 mg/dL; Microalbum/Creatinine Ratio Ur 14.3 ug/mg cr
== END 2021-10-13 10:04 | disposition home or self-care (01) ==
LOC: HO.HMGCLNP 10:03
PROVIDERS: Visit Provider Nurse Practitioner Family
DX: E11.9 Type 2 diabetes mellitus without complications (principal)
CPT/HCPCS: 81003; 82043

== ENCOUNTER → 2021-11-10 08:47 | Outpatient (BNVA) | payer BC, SELFPAY | PROVIDERS: PCP Nurse Practitioner Family; Visit Provider Nurse Practitioner Family | DX: Z13.89 Encounter for screening for other disorder (principal) ==

== ENCOUNTER → 2021-11-17 09:46 | Outpatient (BNVA) | payer BC, SELFPAY | PROVIDERS: PCP Nurse Practitioner Family; Visit Provider Urology | DX: Z13.89 Encounter for screening for other disorder (principal) ==

== ENCOUNTER → 2021-12-08 09:47 | Outpatient (BNVA) | payer BC, SELFPAY | PROVIDERS: PCP Nurse Practitioner Family; Visit Provider Nurse Practitioner Family | DX: Z13.89 Encounter for screening for other disorder (principal) ==

== ENCOUNTER → 2022-04-06 09:00 | Outpatient (BNVA) | payer BC, SELFPAY | PROVIDERS: PCP Nurse Practitioner Family; Visit Provider Nurse Practitioner Family | DX: Z51.81 Encounter for therapeutic drug level monitoring (principal); E11.40 Type 2 diabetes mellitus with diabetic neuropathy, unspecified; Z79.899 Other long term (current) drug therapy | CPT/HCPCS: J7336 ==

== ENCOUNTER 2022-04-20 14:19 | Outpatient (REF) | payer BC, SELFPAY ==
--- NOTE | ~2022-04-20 | CT_ITS ---
EXAMINATION: CT CHEST SCREENING CLINICAL INFORMATION: Current smoker. 54 pack year history. COMPARISON: Previous chest x-ray July 2019 TECHNIQUE: Multidetector volumetric CT imaging of the chest is performed without contrast using low dose technique. Additional 2D coronal and sagittal reformatted images and axial 3D maximum intensity projection (MIP) images are generated on the CT workstation. This CT examination was performed using dose optimization techniques as appropriate, variously including the following: *Automated exposure control *Adjustment of mA and/or kV according to patient size (this includes techniques or standardized protocols for targeted exams where dose is matched to indication/reason for exam; i.e. extremities or head) *Use of iterative reconstruction technique DLP: 91 mGy-cm FINDINGS: LUNGS: There is a 2 mm right upper lobe nodule axial image 109 series 5. There is a 5 mm right middle lobe nodule axial image 299 series 5. The lungs are otherwise clear. No endobronchial or endotracheal lesion. MEDIASTINUM: Coronary artery and aortic valve calcification. The mediastinum is otherwise normal. CORONARY ARTERY CALCIFICATION: Moderate PLEURA: There is no pleural effusion. No pleural mass or thickening. AXILLA: No lymphadenopathy. UPPER ABDOMEN: The gallbladder has been removed. There is diverticulosis of the colon. Aortic stent graft is partially visualized. OSSEOUS STRUCTURES: Degenerative changes of the spine. CT/CT lung screening IMPRESSION: Small pulmonary nodules. Coronary artery and aortic valve calcified. ASSESSMENT: Lung-RADS category 2: Benign RECOMMENDATION: Annual low-dose chest CT follow-up recommended.
== END 2022-04-20 14:20 | disposition home or self-care (01) ==
LOC: HO.CT 14:19
PROVIDERS: PCP Nurse Practitioner Family; Visit Provider Physician Assistant Medical
DX: Z12.2 Encounter for screening for malignant neoplasm of respiratory organs (principal); F17.210 Nicotine dependence, cigarettes, uncomplicated
CPT/HCPCS: 71271; G0296

== ENCOUNTER 2022-05-18 10:40 | Outpatient (REF) | payer BC, SELFPAY ==
[2022-05-18 13:53] LABS: MANUAL DIFF FLAG NO
[2022-05-18 14:03] LABS: Basophils Percent Auto 0.4 % (0-2); Eosinophils Absolute Auto 0.2 X10*3/uL (0.0-0.4); Eosinophils Percent Auto 1.6 % (0-4); Hematocrit 44.4 % (42.0-52.0); Hemoglobin 14.6 g/dl (14.0-18.0); Imm Gran Abs Auto 0.05 X10*3/uL (0.00-0.03); Imm Gran Pct Auto 0.5 % (0.0-0.4); Lymphocytes Absolute Auto 3.2 X10*3/uL (1.2-4.9); Lymphocytes Percent Auto 29.9 % (20-40); Mean Corpuscular HGB Conc 32.9 g/dl (31.0-36.0); Mean Corpuscular Hemoglobin 29.6 pg (27.0-33.0); Mean Corpuscular Volume 89.9 fL (80.0-98.0); Mean Platelet Volume 10.1 fL (9.4-12.4); Monocytes Absolute Auto 0.8 X10*3/uL (0.1-1.2); Monocytes Percent Auto 7.5 % (2-11); Neutrophils Absolute Auto 6.5 x10*3/uL (2.0-8.3); Neutrophils Percent Auto 60.1 % (45-73); Platelet Count 237 X10*3/uL (160-400); Red Blood Count 4.94 X10*6/uL (4.60-5.80); Red Cell Distribution Width 13.5 % (11.0-16.0); White Blood Count 10.7 X10*3/uL (4.8-10.8)
[2022-05-18 14:07] LABS: Appearance Urine Clear; Color Urine Yellow; Glucose Urine UA Negative (Negative); Leukocyte Esterase Urine Negative (Negative); Nitrite Urine Negative (Negative); PH 5.5 (5.0-9.0); Specific Gravity - Urine 1.025 (1.005-1.025); Urine Blood Negative (Negative); Urine Ketones Negative (Negative); Urine Protein Negative (Neg-Trace)
[2022-05-18 14:12] LABS: Estimated Average Glucose 137 mg/dL; Hemoglobin A1c % 6.4 %
[2022-05-18 14:20] LABS: Alanine Aminotransferase 15 U/L (0-40); Albumin Level 4.3 g/dL (3.5-5.0); Alkaline Phosphatase 81 U/L (39-117); Anion Gap 18 (12-20); Aspartate Amino Transferase 24 U/L (5-37); Bilirubin Total 0.6 mg/dL (0.0-1.0); Blood Urea Nitrogen 20 mg/dL (9-16); Calcium 9.1 mg/dL (8.4-10.2); Carbon Dioxide 25 mmol/L (22-29); Chloride 101 mmol/L (96-108); Cholesterol 160 mg/dL; Estimated Glomerular Filt Rate 43; Glucose Fasting 80 mg/dL (60-99); HDL Cholesterol 44 mg/dL; LDL Cholesterol Calculated 103 mg/dl; Potassium 4.6 mmol/L (3.3-5.1); Sodium 139 mmol/L (135-145); Total Protein 7.1 g/dL (6.5-8.0); Triglycerides 68 mg/dL
[2022-05-18 14:34] LABS: TSH reflex Free T4 1.94 uIU/mL (0.32-4.0)
[2022-05-18 14:39] LABS: Creatinine Urine 168.72 mg/dL; Microalbum/Creatinine Ratio Ur 5.3 ug/mg cr
[2022-05-18 14:43] LABS: Prostate Specific Antigen 1.15 ng/mL (<0.05-4.0); Vitamin B12 824 pg/mL (200-900)
[2022-05-24 22:27] LABS: Testosterone, Total 424 ng/dL (250-1100)
== END 2022-05-18 10:41 | disposition home or self-care (01) ==
LOC: HO.HMGCLDS 10:40
PROVIDERS: Absent Provider Urology; PCP Nurse Practitioner Family; Visit Provider Nurse Practitioner Family
DX: Z12.5 Encounter for screening for malignant neoplasm of prostate (principal); E29.1 Testicular hypofunction; E11.9 Type 2 diabetes mellitus without complications; E53.8 Deficiency of other specified B group vitamins
CPT/HCPCS: 36415; 80053; 80061; 81003; 82043; 82607; 83036; 84153; 84403; 84443; 85025

== ENCOUNTER → 2022-05-24 08:40 | Outpatient (BNVA) | payer BC, SELFPAY | PROVIDERS: PCP Nurse Practitioner Family; Visit Provider Urology | DX: E29.1 Testicular hypofunction (principal); R97.20 Elevated prostate specific antigen [PSA] | CPT/HCPCS: 51798 ==

== ENCOUNTER → 2022-09-20 12:26 | Outpatient (BNVA) | payer BC, SELFPAY | PROVIDERS: PCP Nurse Practitioner Family; Referring Provider Nurse Practitioner Family; Visit Provider Physician Assistant | DX: Z13.89 Encounter for screening for other disorder (principal) ==

== ENCOUNTER 2022-11-19 10:14 | Outpatient (REF) | payer BC, SELFPAY ==
[2022-11-19 11:26] LABS: MANUAL DIFF FLAG NO
[2022-11-19 11:28] LABS: Appearance Urine Clear; Color Urine Yellow; Glucose Urine UA Negative (Negative); Leukocyte Esterase Urine Negative (Negative); Nitrite Urine Negative (Negative); PH 6.5 (5.0-9.0); Specific Gravity - Urine <= 1.005 (1.005-1.025); Urine Blood Negative (Negative); Urine Ketones Negative (Negative); Urine Protein Negative (Neg-Trace)
[2022-11-19 11:37] LABS: Basophils Percent Auto 0.3 % (0-2); Eosinophils Absolute Auto 0.1 X10*3/uL (0.0-0.4); Eosinophils Percent Auto 0.9 % (0-4); Hemoglobin 15.2 g/dl (14.0-18.0); Imm Gran Abs Auto 0.06 X10*3/uL (0.00-0.03); Imm Gran Pct Auto 0.5 % (0.0-0.4); Lymphocytes Absolute Auto 2.8 X10*3/uL (1.2-4.9); Lymphocytes Percent Auto 24.4 % (20-40); Mean Corpuscular Hemoglobin 29.6 pg (27.0-33.0); Mean Corpuscular Volume 89.7 fL (80.0-98.0); Mean Platelet Volume 10.2 fL (9.4-12.4); Monocytes Absolute Auto 0.9 X10*3/uL (0.1-1.2); Monocytes Percent Auto 7.5 % (2-11); Neutrophils Absolute Auto 7.7 x10*3/uL (2.0-8.3); Neutrophils Percent Auto 66.4 % (45-73); Platelet Count 226 X10*3/uL (160-400); Red Blood Count 5.13 X10*6/uL (4.60-5.80); Red Cell Distribution Width 13.6 % (11.0-16.0); White Blood Count 11.6 X10*3/uL (4.8-10.8)
[2022-11-19 12:25] LABS: Alanine Aminotransferase 20 U/L (0-40); Albumin Level 4.2 g/dL (3.5-5.0); Alkaline Phosphatase 73 U/L (39-117); Anion Gap 12 (12-20); Aspartate Amino Transferase 24 U/L (5-37); Bilirubin Total 0.7 mg/dL (0.0-1.0); Blood Urea Nitrogen 12 mg/dL (9-16); Calcium 9.6 mg/dL (8.4-10.2); Carbon Dioxide 31 mmol/L (22-29); Chloride 102 mmol/L (96-108); Cholesterol 148 mg/dL; Estimated Glomerular Filt Rate 59; Glucose Fasting 101 mg/dL (60-99); HDL Cholesterol 47 mg/dL; LDL Cholesterol Calculated 85 mg/dl; Potassium 4.7 mmol/L (3.3-5.1); Sodium 140 mmol/L (135-145); Triglycerides 82 mg/dL
[2022-11-19 12:41] LABS: TSH reflex Free T4 0.77 uIU/mL (0.32-4.0)
[2022-11-19 12:42] LABS: Prostate Specific Antigen 1.53 ng/mL (<0.05-4.0)
[2022-11-19 12:50] LABS: Estimated Average Glucose 157 mg/dL; Hemoglobin A1c % 7.1 %
[2022-11-23 23:04] LABS: Testosterone, Total 552 ng/dL (250-1100)
== END 2022-11-19 10:15 | disposition home or self-care (01) ==
LOC: HO.HMGCLDS 10:14
PROVIDERS: Absent Provider Urology; PCP Nurse Practitioner Family; Visit Provider Nurse Practitioner Family
DX: Z12.5 Encounter for screening for malignant neoplasm of prostate (principal); E29.1 Testicular hypofunction; E11.9 Type 2 diabetes mellitus without complications
CPT/HCPCS: 36415; 80053; 80061; 81003; 83036; 84153; 84403; 84443; 85025; 85027

== ENCOUNTER → 2022-11-22 08:44 | Outpatient (BNVA) | payer BC, SELFPAY | PROVIDERS: PCP Nurse Practitioner Family; Visit Provider Urology ==

== ENCOUNTER 2023-09-12 15:26 | Outpatient (AMB) | payer BC, SELFPAY ==
[2023-09-12 15:38] VITALS: BP 140/88; PULSE 67; O2SAT 95; BMI 35.2
--- NOTE | 2023-09-12 15:38 | A.OFFPC_ITS ---
Vital Signs 09/12/23 15:38 09/12/23 16:46 Height 6 ft Weight 259 lb 8 oz BMI 35.2 BP 140/88 H 138/70 Blood Pressure Location Lt brachial Lt brachial Position Sitting Sitting Pulse 67 Pulse Source Pulse Oximeter Pulse Oximetry (%) 95 Oxygen Delivery Method Room Air Intake Visit Reasons: diabetes follow up Intake Note: Pt is here to follow up for his DM Allergies acetaminophen [From Tylenol] Allergy (Unknown, Verified 09/12/23 15:40) nausea/stomach pains codeine [Codeine] Allergy (Unknown, Verified 09/12/23 15:40) N/V Medication List - Last Reconciled 09/12/23 by DIONE Cage- alcohol swabs (Alcohol Prep Pads) 1 pad topical BID 90 days aspirin (Adult Aspirin Regimen) 81 mg PO DAILY bisacodyl (Dulcolax (bisacodyl)) 10 mg (2 x 5 mg) PO ONCE 1 day blood sugar diagnostic (FreeStyle Lite Strips) Use to check fasting blood sugar in morning and a random blood sugar during the day blood-glucose meter (FreeStyle Lite Meter kit) Use to check fasting blood sugar in morning and a random blood sugar during the day cholecalciferol (vitamin D3) 50 mcg PO DAILY cyanocobalamin (vitamin B-12) 1,000 mcg PO DAILY gabapentin 800 mg PO TID lancets (FreeStyle Lancets) Use to check fasting blood sugar in morning and a random blood sugar during the day lisinopril 5 mg PO DAILY polyethylene glycol 3350 (Miralax) 238 grams PO ONCE 1 day simvastatin 40 mg PO BEDTIME Tobacco use date assessed: 09/12/23 Fall risk assessment: No Falls in past year Last assessed Fall Risk: 09/12/23 Dental Screening Dental Screen Date: 09/12/23 Did you have a dental visit in the last 12 months?: No Did you have a dental problem in the last 6 months where you did not have access to dental care?: No Was dental information given to patient?: No HPI diabetes follow up HPI Details Pt is here for a follow up for diabetes. Pt is on a FRANSISCA and a statin. He understands the s/s of hypoglycemia and how to correct it. Pt reports he has not checked his sugar in over a year. I reinforced the importance of taking his sugars regularly, and consequences if he doesn't. Pt denies any polyuria, polydipsia, but does have neuropathy. Pt reports he will make his own eye appt. #2 for past 6 months pt reported having voice changes, and a chronic cough. He is a smoker. To assess further i will refer to ENT. NOTE: pt knows he needs to call GI for an appointment (colon screen). [facility] Medical History Diabetes Personal history of nicotine dependence Rib pain on left side Lumbar spondylosis Failed back syndrome, lumbar HTN (hypertension) Surgical History History of lumbar surgery (~2014) History of endoscopy (~2008) History of colonoscopy (~2009) History of shoulder surgery (~2006) History of tonsillectomy History of AAA (abdominal aortic aneurysm) repair (~2020) History of cholecystectomy (~1989) Family History Father Brain aneurysm Mother Cirrhosis Sister History of quadruple bypass Diabetes mellitus Brother No problems noted. Brother No problems noted. Brother No problems noted. 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 1. Little interest or pleasure in doing things: not at all 2. Feeling down, depressed, or hopeless: not at all 3. Trouble falling or staying asleep, or sleeping too much: several days 4. Feeling tired or having little energy: several days 5. Poor appetite or overeating: not at all 6. Feeling bad about yourself - or that you are a failure or have let yourself or your family down: not at all 7. Trouble concentrating on things, such as reading the newspaper or watching television: not at all 8. Moving or speaking so slowly that other people could have noticed. Or the opposite - being so fidgety or restless that you have been moving around a lot more than usual: not at all 9. Thoughts that you would be better off or of hurting yourself in some way: not at all Total score: 2 Depression Screening Interpretation: Negative Depression Screening Done: Yes 00164 - PHQ-9 Billing: Yes Source: Developed by Drs. Carlos Tan, Magui Petit, Robbie Patel and colleagues, with an educational ninoska from [employer]. Thrive Questionnaire Date Thrive assessed: 09/12/23 I am a: Patient What is your living situation today?: I have a steady place to live Within the past 12 months, did the food you bought not last and you didn't have the money to get more?: Never true Within the past 12 months, did you worry whether your food would run out before you got money to buy more?: Never true Do you have trouble paying for medicines?: No Do you have trouble getting transportation to medical appointments?: No Do you have trouble paying your heating and electricity bill?: No Do you have trouble taking care of your child, family member or friend?: No Do you have trouble with day-to-day activities such as bathing, preparing meals, shopping, managing finances, etc.?: No Are you currently unemployed and looking for a job?: No Are you interested in more education?: No THRIVE Score: 0 AUDIT C Alcohol Use Questionnaire (AUDIT-C) 1. How often do you have a drink containing alcohol?: Never Total Score: 0 RODERICK-7 AMB Questionnaire RODERICK-7 Date RODERICK - 7 assessed: 09/12/23 Feeling nervous, anxious, or on edge: 1 = Several days Not being able to stop or control worryin = Several days Worrying too much about different things: 0 = Not at all Trouble relaxin = Several days Being so restless that it is hard to sit still: 0 = Not at all Becoming easily annoyed or irritable: 1 = Several days Feeling afraid as if something awful might happen: 0 = Not at all Total RODERICK-7 score (0-4 normal; 5-9 mild; 10-14 moderate; 15-21 severe): 4 Source: Developed by Drs. Carlos Tan, Magui Petit, Robbie Patel and colleagues, with an educational ninoska from [employer]. Physical exam (Primary Care) Vital Signs: Last Vital Signs Pulse 67 09/12/23 15:38 BP 140/88 H 09/12/23 15:38 Pulse Ox 95 09/12/23 15:38 Oxygen Delivery Method Room Air 09/12/23 15:38 BMI result Body Mass Index 35.2 Tobacco/Smoking Status: Tobacco use Status Tobacco use date assessed 09/12/23 09/12/23 15:44 Patient Tobacco Use Status Current everyday Tobacco 09/12/23 15:44 e-Cigarette/Vaping Use Never Used 09/12/23 15:44 PHQ-9: PHQ-9 Score PHQ-9: Total score 2 09/12/23 16:21 Depression Screening Interpretation: Negative Thrive Assessment: Date of Thrive Assessment Date Thrive assessed 09/12/23 09/12/23 15:54 Const General: cooperative and comfortable Nutritional Appearance: obese Resp Effort & Inspection: normal respiratory effort Auscultation: clear to auscultation bilaterally Cardio Rate: regular rate Rhythm: regular rhythm Heart sounds: S1 normal heart sound present, S2 normal heart sound present and no murmurs Extrem Other: feet intact, + sensation with use of monofilament Psych Appearance: grossly normal Mental Status: mental status grossly normal Speech and movement: Normal speech and movement present Affect: normal affect Attitude: cooperative Thought process: Normal thought process present Thought content: Normal thought content present Insight: Good insight present (Psych) Judgement: Good judgement present (Psych) Results AMB Hemoglobin A1c AMB Hemoglobin A1c 7.9 % Last Edit by Clemencia Fernandez CMA on 09/12/23 15: 57 Results Reviewed Results Reviewed: Laboratory Last Values Hgb A1c (Clinic) 7.9 % (4.0-6.0) H 09/12/23 15:55 Assessment and Plan Assessment & Plan (1) Smoker: Code(s): F17.200 - Nicotine dependence, unspecified, uncomplicated Plan: RE placed thoracic referral in for low dose CT scans (2) B12 deficiency: Code(s): E53.8 - Deficiency of other specified B group vitamins Plan: lab ordered (3) Diabetes: Code(s): E11.9 - Type 2 diabetes mellitus without complications Plan: labs ordered, reinforced importance of tight control (4) Change in voice: Code(s): R49.9 - Unspecified voice and resonance disorder Plan: referring to ENT (5) Screening PSA (prostate specific antigen): Code(s): Z12.5 - Encounter for screening for malignant neoplasm of prostate Orders: Orders Vitamin B12 and Folate Today E53.8 - Deficiency of other specified B group vitamins TSH reflex Free T4 Today E11.9 - Type 2 diabetes mellitus without complications Lipid Panel Today E11.9 - Type 2 diabetes mellitus without complications AMB Hemoglobin A1c Today E11.9 - Type 2 diabetes mellitus without complications Complete Blood Count Auto Diff Today E11.9 - Type 2 diabetes mellitus without complications Comprehensive [place]. Panel Fast Today E11.9 - Type 2 diabetes mellitus without complications UA CC w/rflx Micro + Cult Today E11.9 - Type 2 diabetes mellitus without complications Microalbumin, Random (w Creat) Today E11.9 - Type 2 diabetes mellitus without complications Prostate Specific Antigen Scr Today Z12.5 - Encounter for screening for malignant neoplasm of prostate Referrals Thoracic Surgery Referral F17.200 - Nicotine dependence, unspecified, uncomplicated Ear/Nose/Throat Referral R49.9 - Unspecified voice and resonance disorder Coding Level of Care Code Est Pt Level 3 (08326) Diagnoses Smoker F17.200 B12 deficiency E53.8 Diabetes E11.9 Change in voice R49.9 Screening PSA (prostate specific antigen) Z12.5
[2023-09-12 16:46] VITALS: BP 138/70
== END 2023-09-12 16:49 | disposition home or self-care (01) ==
PROVIDERS: PCP Nurse Practitioner Family; Visit Provider Nurse Practitioner Family
DX: F17.200 Nicotine dependence, unspecified, uncomplicated (principal); E53.8 Deficiency of other specified B group vitamins; E11.9 Type 2 diabetes mellitus without complications; R49.9 Unspecified voice and resonance disorder; Z12.5 Encounter for screening for malignant neoplasm of prostate
CPT/HCPCS: 83036; 99213

== ENCOUNTER 2023-09-14 08:40 | Outpatient (REF) | payer BC, SELFPAY ==
[2023-09-14 11:06] LABS: MANUAL DIFF FLAG NO
[2023-09-14 11:14] LABS: Basophils Percent Auto 0.2 % (0-2); Eosinophils Absolute Auto 0.1 X10*3/uL (0.0-0.4); Eosinophils Percent Auto 0.8 % (0-4); Hematocrit 49.4 % (42.0-52.0); Hemoglobin 16.1 g/dl (14.0-18.0); Imm Gran Abs Auto 0.03 X10*3/uL (0.00-0.03); Imm Gran Pct Auto 0.4 % (0.0-0.4); Lymphocytes Absolute Auto 1.8 X10*3/uL (1.2-4.9); Mean Corpuscular HGB Conc 32.6 g/dl (31.0-36.0); Mean Platelet Volume 10.1 fL (9.4-12.4); Monocytes Absolute Auto 0.6 X10*3/uL (0.1-1.2); Monocytes Percent Auto 6.7 % (2-11); Neutrophils Absolute Auto 6.1 x10*3/uL (2.0-8.3); Neutrophils Percent Auto 70.9 % (45-73); Platelet Count 248 X10*3/uL (160-400); Red Blood Count 5.37 X10*6/uL (4.60-5.80); White Blood Count 8.5 X10*3/uL (4.8-10.8)
[2023-09-14 11:29] LABS: Appearance Urine Clear; Color Urine Yellow; Glucose Urine UA Negative (Negative); Leukocyte Esterase Urine Negative (Negative); Nitrite Urine Negative (Negative); PH 6.5 (5.0-9.0); Urine Blood Negative (Negative); Urine Ketones Negative (Negative); Urine Protein Negative (Neg-Trace)
[2023-09-14 11:38] LABS: Alanine Aminotransferase 22 U/L (0-40); Albumin Level 4.1 g/dL (3.5-5.0); Alkaline Phosphatase 71 U/L (39-117); Anion Gap 10 (12-20); Aspartate Amino Transferase 20 U/L (5-37); Bilirubin Total 0.6 mg/dL (0.0-1.0); Blood Urea Nitrogen 14 mg/dL (9-16); Calcium 9.5 mg/dL (8.4-10.2); Carbon Dioxide 30 mmol/L (22-29); Chloride 103 mmol/L (96-108); Cholesterol 161 mg/dL (<200); Estimated Glomerular Filt Rate > 60; Glucose Fasting 147 mg/dL (60-99); HDL Cholesterol 46 mg/dL (>40); LDL Cholesterol Calculated 96 mg/dL (<100); Potassium 4.3 mmol/L (3.3-5.1); Sodium 139 mmol/L (135-145); Total Protein 7.2 g/dL (6.5-8.0); Triglycerides 98 mg/dL (<150)
[2023-09-14 11:41] LABS: Creatinine Urine 69.55 mg/dL; Microalbum/Creatinine Ratio Ur 8.6 ug/mg cr (<30); Prostate Specific Antigen 1.51 ng/mL (<0.05-4.0)
[2023-09-14 11:56] LABS: TSH reflex Free T4 0.37 uIU/mL (0.32-4.0)
[2023-09-14 12:05] LABS: Folate 8.4 ng/mL (> or = 4.0); Prostate Specific Antigen Scr 1.46 ng/mL (<0.05-4.0)
[2023-09-14 12:13] LABS: Vitamin B12 621 pg/mL (200-900)
[2023-09-18 09:43] LABS: Testosterone, Total 545 ng/dL (250-1100)
== END 2023-09-14 08:41 | disposition home or self-care (01) ==
LOC: HO.HMGCLDS 08:40
PROVIDERS: Urology; PCP Nurse Practitioner Family; Visit Provider Nurse Practitioner Family
DX: Z12.5 Encounter for screening for malignant neoplasm of prostate (principal); E29.1 Testicular hypofunction; E53.8 Deficiency of other specified B group vitamins; E11.9 Type 2 diabetes mellitus without complications
CPT/HCPCS: 36415; 80053; 80061; 81003; 82043; 82570; 82607; 82746; 84153; 84403; 84443; 85025; 85027

== ENCOUNTER 2024-07-28 14:04 | Outpatient (AMB) | payer BC, SELFPAY ==
[2024-07-28 14:05] VITALS: BP 138/80; PULSE 70; O2SAT 95; BMI 33.0
--- NOTE | 2024-07-28 14:05 | A.OFFPC_ITS ---
Vital Signs 07/28/24 14:05 Height 6 ft Weight 243 lb BMI 33.0 BP 138/80 Blood Pressure Location Rt brachial Position Sitting Pulse 70 Pulse Source Pulse Oximeter Pulse Oximetry (%) 95 Oxygen Delivery Method Room Air Intake Visit Reasons: PE Intake Note: pt is here for PE Gleason Operator Required: No Accompanied by: Self / Same As Patient Allergies acetaminophen [From Tylenol] Allergy (Unknown, Verified 07/28/24 14:06) nausea/stomach pains codeine [Codeine] Allergy (Unknown, Verified 07/28/24 14:06) N/V Medication List - Last Reconciled 07/28/24 by LULU CageP- alcohol swabs (Alcohol Prep Pads) 1 pad topical BID 90 days aspirin (Adult Aspirin Regimen) 81 mg PO DAILY atorvastatin 80 mg PO BEDTIME blood sugar diagnostic (FreeStyle Lite Strips) Use to check fasting blood sugar in morning and a random blood sugar during the day blood-glucose meter (FreeStyle Lite Meter kit) Use to check fasting blood sugar in morning and a random blood sugar during the day cholecalciferol (vitamin D3) 50 mcg PO DAILY cyanocobalamin (vitamin B-12) 1,000 mcg PO DAILY empagliflozin (Jardiance) 10 mg PO DAILY gabapentin 800 mg PO TID lancets (FreeStyle Lancets) Use to check fasting blood sugar in morning and a random blood sugar during the day lisinopril 5 mg PO DAILY Tobacco use date assessed: 07/28/24 Fall risk assessment: No Falls in past year Last assessed Fall Risk: 07/28/24 Dental Screening Dental Screen Date: 07/28/24 Did you have a dental visit in the last 12 months?: Yes Did you have a dental problem in the last 6 months where you did not have access to dental care?: No Was dental information given to patient?: Patient has dentist HPI PE HPI Details History of Present Illness The patient is a 63-year-old male presenting with a follow-up for his physical exam, diabetes management, and neuropathy. He has a history of diabetes mellitus, as confirmed by his current A1c level of 6.7. The patient reports intermittent neuropathy primarily affecting his left big toe, which has been a persistent issue. He did not describe any specific events leading to the neuropathy or particular interventions attempted thus far other than ongoing diabetes management. The patient acknowledges a history of multiple gastroenterology referrals for colon cancer screening, which have not yet been completed. While he attended an initial consultation, he has not followed up for a colonoscopy, but he expresses interest in using Cologuard. He denies any chest pain, shortness of breath, blood in stool, constipation, diarrhea, or urinary issues. He has also noted onychomycosis affecting the nail of his left big toe. Health Maintenance - Colorectal cancer screening: Multiple referrals placed, Cologuard order to be placed. - Lung cancer screening: Low-dose CAT sc an ordered in September, to be reordered due to non-completion. Pt continues to smoke. - PSA test ordered for prostate cancer s creening, refuses AYSHA today. - Eye exam is current. - A1c level: 6.7 Social History - Plans to retire next year. Review of Systems - Cardiovascular: Denies chest pain. - Respiratory: Denies shortness of breat h. - Gastrointestinal: Denies blood in stoo l, constipation, or diarrhea. - Genitourinary: Denies urinary problems . Physical Exam General: Cooperative, healthy appearing, comfortable, no acute distress and well developed Orientation: Patient oriented x3 Limitations: No limitations Head: Normal to inspection Ears: Hearing grossly normal bilaterally Nose: Normal external nose present Face and sinus: Normal facial exam Eyes: Appearance normal, both eyes and all related structures Neck: Normal visual inspection and Yes full ROM Respiratory: Lungs were diminished/clear. Able to speak in complete sentences. Cardiovascular: Regular rate and rhythm. Normal S1 and S2 GI: Normal to inspection. Soft to palpation and nontender Skin: Onychomycosis noted to left big toe nail Neuro: Patient oriented x3. Intermittent neuropathy, mostly to left big toe only Extremities: Normal to inspection except lack of sensation to the first left big toe Results - Labs: Hemoglobin A1c was 6.7. Plan - Diabetes Mellitus: Continue current ma nagement, monitor A1c, and maintain regular follow-ups. - Intermittent Neuropathy: Continue ileana toring, adjust diabetes management as necessary. - Onychomycosis: Consider treatment opti ons if symptoms worsen or become bothersome. - Colorectal Cancer Screening: Submit Co loguard order; inform patient of the need for colonoscopy if the result is positive. - Lung Cancer Screening: Resubmit referr al for low-dose CAT scan. - Prostate Screening: PSA test ordered; AYSHA declined by the patient. Patient was informed and verbally consented to the use of an ambient scribe for clinic note documentation during this visit. Discussion Notes I discussed with the patient his current medical issues and management. The importance of regular colorectal cancer screening was emphasized, and I informed him of the next steps should Cologuard results indicate further screening is needed. We addressed his diabetes management and the significance of maintaining blood glucose levels within the target range. I clarified that further assessment might be necessary if neuropathy symptoms persist or worsen. We reviewed the need for lung cancer screening and agreed to resubmit the referral for a low-dose CAT scan. The patient declined a digital rectal exam today, opting instead for a PSA test, which has been ordered. We plan to follow up in 6 months for ongoing management. Patient Instructions - Complete Cologuard testing as ordered. - Maintain diabetes management and repor t any changes in symptoms. - Monitor left big toe for changes or wo rsening of symptoms. - Attend follow-up in 6 months. - Get PSA test as scheduled. - Follow up on lung cancer screening octaviano ointment once scheduled. [facility] Medical History Diabetes Personal history of nicotine dependence Rib pain on left side Lumbar spondylosis Failed back syndrome, lumbar HTN (hypertension) Surgical History History of lumbar surgery (~2014) History of endoscopy (~2008) History of colonoscopy (~2009) History of shoulder surgery (~2006) History of tonsillectomy History of AAA (abdominal aortic aneurysm) repair (~2020) History of cholecystectomy (~1989) Family History Father Brain aneurysm Mother Cirrhosis Sister History of quadruple bypass Diabetes mellitus Brother No problems noted. Brother No problems noted. Brother No problems noted. 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 1. Little interest or pleasure in doing things: not at all 2. Feeling down, depressed, or hopeless: not at all 3. Trouble falling or staying asleep, or sleeping too much: several days 4. Feeling tired or having little energy: several days 5. Poor appetite or overeating: not at all 6. Feeling bad about yourself - or that you are a failure or have let yourself or your family down: not at all 7. Trouble concentrating on things, such as reading the newspaper or watching television: not at all 8. Moving or speaking so slowly that other people could have noticed. Or the opposite - being so fidgety or restless that you have been moving around a lot more than usual: not at all 9. Thoughts that you would be better off or of hurting yourself in some way: not at all Total score: 2 Depression Screening Interpretation: Negative Depression Screening Done: Yes 61805 - PHQ-9 Billing: Yes Source: Developed by Drs. Carlos Tan, Magui Petit, Robbie Patel and colleagues, with an educational ninoska from [employer]. Thrive Questionnaire Date Thrive assessed: 07/28/24 I am a: Patient What is your living situation today?: I have a place to live, but I am worried about losing it in the future Within the past 12 months, did the food you bought not last and you didn't have the money to get more?: Never true Within the past 12 months, did you worry whether your food would run out before you got money to buy more?: Never true Do you have trouble paying for medicines?: No Do you have trouble getting transportation to medical appointments?: No Do you have trouble paying your heating and electricity bill?: No Do you have trouble taking care of your child, family member or friend?: No Do you have trouble with day-to-day activities such as bathing, preparing meals, shopping, managing finances, etc.?: No Are you currently unemployed and looking for a job?: No Are you interested in more education?: No Please select the resources that you would like help with: None Currently or been in a relationship where the following occur: No concerns reported THRIVE Score: 1 AUDIT C Alcohol Use Questionnaire (AUDIT-C) 1. How often do you have a drink containing alcohol?: Monthly or less 2. How many drinks containing alcohol do you have on a typical day when you are drinking?: 5 or 6 3. How often do you have six or more drinks on one occasion?: Less than monthly Total Score: 4 Score Reviewed/Action Taken: Yes RODERICK-7 AMB Questionnaire RODERICK-7 Date RODERICK - 7 assessed: 07/28/24 Feeling nervous, anxious, or on edge: 1 = Several days Not being able to stop or control worryin = Several days Worrying too much about different things: 0 = Not at all Trouble relaxin = Several days Being so restless that it is hard to sit still: 0 = Not at all Becoming easily annoyed or irritable: 1 = Several days Feeling afraid as if something awful might happen: 0 = Not at all Total RODERICK-7 score (0-4 normal; 5-9 mild; 10-14 moderate; 15-21 severe): 4 Source: Developed by Drs. Carlos Tan, Magui Petit, Robbie Patel and colleagues, with an educational ninoska from [employer]. RODERICK-7 Assessment Billing RODERICK-7 Assessment Tool: RODERICK-7 Assessment 78225 Physical exam (Primary Care) Vital Signs: Last Vital Signs Pulse 70 07/28/24 14:05 BP 138/80 07/28/24 14:05 Pulse Ox 95 07/28/24 14:05 Oxygen Delivery Method Room Air 07/28/24 14:05 BMI result Body Mass Index 33.0 Tobacco/Smoking Status: Tobacco use Status Tobacco use date assessed 07/28/24 07/28/24 14:07 Patient Tobacco Use Status Current everyday Tobacco 07/28/24 14:07 e-Cigarette/Vaping Use Never Used 07/28/24 14:07 PHQ-9: PHQ-9 Score PHQ-9: Total score 2 07/28/24 14:25 Depression Screening Interpretation: Negative Thrive Assessment: Date of Thrive Assessment Date Thrive assessed 07/28/24 07/28/24 14:07 Currently or been in a relationship where the following occur: No concerns reported Results AMB Hemoglobin A1c AMB Hemoglobin A1c 6.7 % Last Edit by Christiano Fernandez CMA on 07/28/24 14: 41 Coding Level of Care Code Est Pt Prev Care >65y(14128) Diagnoses Physical exam Z00.00 Diabetes E11.9 Additional Codes RODERICK-7 Assessment Billing - RODERICK-7 Assessment Tool: RODERICK-7 Assessment 28705 ([id number]) PHQ-9 - 31652 - PHQ-9 Billing: Yes ([id number]) Assessment & Plan Assessment & Plan (1) Physical exam: Code(s): Z00.00 - Encounter for general adult medical examination without abnormal findings Category: Medical (2) Diabetes: Code(s): E11.9 - Type 2 diabetes mellitus without complications Category: Medical Plan . Orders: Orders Complete Blood Count Auto Diff Today Z00.00 - Encounter for general adult medical examination without abnormal findings UA CC w/rflx Micro + Cult Today Z00.00 - Encounter for general adult medical examination without abnormal findings Lipid Panel Today Z00.00 - Encounter for general adult medical examination without abnormal findings Microalbumin, Random (w Creat) Today E11.9 - Type 2 diabetes mellitus without complications AMB Hemoglobin A1c Today Z13.9 - Encounter for screening, unspecified CT lung screening 09/20/23 F17.210 - Nicotine dependence, cigarettes, uncomplicated Comprehensive [place]. Panel Fast Today Z00.00 - Encounter for general adult medical examination without abnormal findings TSH reflex Free T4 Today Z00.00 - Encounter for general adult medical examination without abnormal findings Referrals Cologuard Test Z12.11 - Encounter for screening for malignant neoplasm of colon, Z12.12 - Encounter for screening for malignant neoplasm of rectum Medications: New atorvastatin 80 mg PO BEDTIME 90 tabs 2RF Discontinued simvastatin Discontinued Reason: Doctor's Order 40 mg PO BEDTIME 90 tabs 1RF
== END 2024-07-28 14:56 | disposition home or self-care (01) ==
PROVIDERS: PCP Nurse Practitioner Family; Visit Provider Nurse Practitioner Family
DX: Z00.00 Encounter for general adult medical examination without abnormal findings (principal); E11.9 Type 2 diabetes mellitus without complications; Z13.9 Encounter for screening, unspecified

== ENCOUNTER → 2024-07-28 14:04 | Outpatient (BNVA) | payer BC, SELFPAY | PROVIDERS: PCP Nurse Practitioner Family; Visit Provider Nurse Practitioner Family | DX: Z00.00 Encounter for general adult medical examination without abnormal findings (principal); E11.40 Type 2 diabetes mellitus with diabetic neuropathy, unspecified; B35.1 Tinea unguium | CPT/HCPCS: 83036; 96127 ==

== ENCOUNTER 2024-08-10 09:43 | Outpatient (REF) | payer BC, SELFPAY ==
--- OUTSIDE RECORDS SUMMARY | 2024-08-10 09:58 | XMS_ITS | Continuity of Care Document ---
Author Organization [facility] Address [address] [place] [address]- Care Team Providers Care Installation Service Representative Name Role Phone Silvano Tejada NP Primary Care Physician Encounter [facility] ACCT R [id number] Date(s): 07/27/24 - 08/03/24 [facility] [address] [place] [address]- Attending Physician: Mitch Christopher MD Admitting Physician: Mitch Christopher MD Referring Physician: Silvano Tejada NP Encounter Type: Office Visit Allergies, Adverse Reactions, Alerts Substance Criticality Severity Reaction Reaction Severity Status codeine Upset stomach Active acetaminophen upset stomach Ac tive Medications aspirin 81 mg oral tablet 1 tablet = 81 mg, By Mouth, Daily, # 30 tablet, 0 Refills, Maintenance, 02/13/12 9:56:41 AM EDT, Tablet Start Date: 02/13/12 Status: Ordered Quantity: 30.0 Unit: tablet Repeat number: 1 busPIRone 5 mg oral tablet 5 mg, 1, tablet, By Mouth, 2 times a day, PRN, Refills 0, Maintenance, Anxiety, 11/17/20 9:33:00 AM EDT, Partial fill upon patient request if the prescription is for a schedule II opioid drug. Start Date: 11/17/20 Status: Ordered Repeat number: 1 Gabapentin = 400 mg, By Mouth, 3 times a day, 0 Refills, Maintenance, 05/08/19 8:54:36 AM EDT Start Date: 05/08/19 Status: Ordered Repeat number: 1 lisinopril 5 mg oral tablet 1 tablet = 5 mg, By Mouth, Daily at bedtime, # 30 tablet, 0 Refills, Maintenance, 03/24/14 8:29:48 AMEDT, Tablet Start Date: 03/24/14 Status: Ordered Quantity: 30.0 Unit: tablet Repeat number: 1 Pepcid 20 mg oral tablet 1 tablet = 20 mg, By Mouth, Daily, # 14 tablet, 0 Refills, Maintenance, 12/13/20 5:45:00 PM EDT, Tablet, [facility]/pharmacy #[id number], Partial fill upon patient request if the prescription is for a schedule II opioid drug., 184, cm, 12/08/20 11:23:00 EDT, Height, 112.5, kg, 11/23/20 14:26:00 EDT, Dry Weight Start Date: 12/13/20 Stop Date: 12/27/20 Status: Ordered Quantity: 14.0 Unit: tablet Repeat number: 1 simvastatin 40 mg oral tablet 1 tablet = 40 mg, By Mouth, Daily at bedtime, 0 Refills, Maintenance, 08/27/12 1:06:25 PM EST Start Date: 08/27/12 Status: Ordered Repeat number: 1 Vitamin B12 = 1,000 mcg, By Mouth, Daily at bedtime, 0 Refills, Maintenance, 04/03/16 9:15:33 AM EDT Start Date: 04/03/16 Status: Ordered Repeat number: 1 Vitamin D3 1000 intl units oral tablet = 25 mcg, By Mouth, Daily at bedtime, 0 Refills, Maintenance, 11/17/20 9:33:00 AM EDT, Partial fill upon patient request if the prescription is for a schedule II opioid drug. Start Date: 11/17/20 Status: Ordered Repeat number: 1 Problem List Condition Confirmation Course Effective Dates Status H ealth Status Informant AAA (abdominal aortic aneurysm) Confirmed Active Hyperlipidemia Confirmed Active Hypertension Confirmed Active Obese class I Confirmed Active Failed back syndrome Confirmed Active Vital Signs Most recent to oldest [Reference Range]: 1 Height 184 cm (07/27/24 7:59 AM) Weight 115.90 kg (07/27/24 7:59 AM) Oxygen Saturation [94-100 %] 98 % (07/27/24 7:59 AM) Pulse Rate [55-90 bpm] 100 bpm *H* (07/27/24 7:59 AM) Body Mass Index [18.5-24.99 kg/m2] 34.23 kg/m2 *>HHI* (07/27/24 7:59 AM) Blood Pressure [90-138/55-84 mm Hg] 144/ 80mm Hg *H* (07/27/24 7:59 AM) Mode of Delivery (Oxygen) Room air (07/27/24 7:59 AM) Blood pressure sites Arm, left (07/27/24 7:59 AM) Weight Obtained Via Patient/family state d (07/27/24 7:59 AM) Social History Social History Type Response Smoking Status 5-9 cigarettes (betw een 1/4 to 1/2 pack)/day in last 30 days entered on: 01/16/23 Sex Sex Representation Male (finding) Note * Romain Nickerson: PERFORM Event Display: Patient Education/Instruction Authored Date: [id number] Ambulatory Adult Visit Summary [facility] [address] [facility] [address] [place] [address] Name: AMINA BEAR : 1960?? Visit: 07/27/2024 07:42?? Ambulatory Visit Instructions ?? Your Care Team Primary Care Provider Mallory CONNOR , Silvano Gandhi? This Visit Provider Candi FLORES, Mitch Balbuena Vitals Signs Pulse Rate:??100 bpm??High Height: 184 cm Systolic Blood Pressure:??144 mm Hg??High Weight: 115.9 kg Diastolic Blood Pressure: 80 mm Hg Body Mass Index:??34.23 kg/m2??Critical Oxygen Saturation: 98 % Body surface area: 2.43 Medications The list below reflects the information in our records and provided by you today along with any changes made during this visit. Please continue your medications until treatment is completed or stopped by your provider. If this is different from the information you have or there are other questions,please contact the prescribing provider. What How Much When Instructions Unchanged Aspirin (aspirin 81 mg oral tablet) 1 tab(s) Oral Daily Unchanged BusPIRone (busPIRone 5 mg oral tablet) 1 tab(s) Oral Twice a day as needed for Anxiety Unchanged Cholecalciferol (Vitamin D3 1000 intl units oral tablet) 25 Microgram Oral Daily at Bedtime Unchanged Cyanocobalamin (Vitamin B12) 1,000 Microgram Oral Daily at Bedtime Unchanged Famotidine (Pepcid 20 mg oral tablet) 1 tab(s) Oral Daily Duration: 14 Days Unchanged Gabapentin 400 Milligram Oral 3 times a day Unchanged Lisinopril (lisinopril 5 mg oral tablet) 1 tab(s) Oral Daily at Bedtime Unchanged Simvastatin (simvastatin 40 mg oral tablet) 1 tab(s) Oral Daily at Bedtime Medications and Immunizations Administered Medications Given During Visit No medications given during this visit.?? Allergies (NKA means No Known Allergies) acetaminophen??(upset stomach) codeine??(Upset stomach) Common Emergency Awareness Tips IS IT A STROKE? Act FAST and Check for these signs: FACE Does the face look uneven? ARM Does one arm drift down? SPEECH Does their speech sound strange? TIME Call at any sign of stroke ?? Heart Attack Signs Chest discomfort: Most heart attacks involve discomfort in the center of the chest and lasts more than a few minutes, or goes away and comes back. It can feel like uncomfortable pressure, squeezing, fullness or pain. Discomfort in upper body: Symptoms can include pain or discomfort in one or both arms, back, neck, jaw or stomach. Shortness of breath: With or without discomfort. Other signs: Breaking out in a cold sweat, nausea, or lightheaded. Remember, MINUTES DO MATTER. If you experience any of these heart attack warning signs, call to get immediate medical attention! ?? Smoking can increase your chances of developing chronic health problems and can cause harmful effects to other family members in your house. If you smoke, you are strongly encouraged to quit. Please call [employer] Link at [phone] or [phone] (9362) or log in to [email or web address] for referrals to smoking cessation programs. ?? The National Suicide Prevention Hotline is available 11/02 if you or someone you know needs to find a reason to keep living. By calling 0-666-287-[employer] (3521) you'll be connected to a skilled, trained counselor at a crisis center in your area. [facility] You can view and manage your care through the patient portal or by using a health care octaviano of your choosing. [employer] is a website that allows you to securely view your medical information including your hospital discharge summary, office visit summaries, medications and follow-up visits. You can also request appointments, renew medications, and request access to your medical information using a health care octaviano of your choosing, or just ask a question. You can enroll at [email or web address] or register during your next office visit. [facility], in keeping with [facility] guidance, no longer requires face masks for staff, patientsor visitors in most situations. Similiar to time spent indoors at other locations, there is the chance that you were exposed to repiratory viruses during your time with us (such as flu or COVID-19). If you develop symptoms concerning for a viral respiratory infection, please seek testing (and treatment if indicated) from your medical provider or home test kit. ?? Disclaimer: The information provided is of a general nature and is intended to be used in conjunction with the recommendations and advice of your health care practitioner. Every effort has been made to ensure that the information provided is accurate and complete at the time it is provided to you however, as your needs change, or, as new information becomes available, different or additional instructions may be required. ?? If you have questions, please consult with your primary care provider or pharmacist, as appropriate. This information is not intended to serve as substitution for assessment and evaluation by a qualified health care provider. If you do not have a primary care provider, you may find a [facility] provider by calling [facility] at [phone]. Patient Care team information Care Team Personnel Name: Silvano Tejada NP Position: Reference Physician Member Role: PCP Address: [address] [place] [address] Telecom: Care Team Related Persons Name: HERMANN BEAR Insurance Providers Guarantor name: AMINA MARIANELA Health Plan Information #: 1 Payer: [employer] ELECT Member Number: [id number] Policy Number: NA Group Number: [id number] Health Plan Information #: 2 Payer: [employer] ELECT Member Number: [id number] Policy Number: NA Group Number: NA
[2024-08-10 12:45] LABS: MANUAL DIFF FLAG NO
[2024-08-10 12:48] LABS: Appearance Urine Clear; Color Urine Yellow; Glucose Urine UA >=1000 mg/dL (Negative); Leukocyte Esterase Urine Negative (Negative); Nitrite Urine Negative (Negative); PH 6.5 (5.0-9.0); Specific Gravity - Urine 1.015 (1.005-1.025); UMIC TRIGGER UACC YES; Urine Blood Negative (Negative); Urine Ketones Negative (Negative); Urine Protein Negative (Neg-Trace)
[2024-08-10 12:48] LABS: Basophils Percent Auto 0.3 % (0-2); Eosinophils Absolute Auto 0.1 X10*3/uL (0.0-0.4); Hematocrit 53.2 % (42.0-52.0); Hemoglobin 17.5 g/dl (14.0-18.0); Imm Gran Abs Auto 0.04 X10*3/uL (0.00-0.03); Imm Gran Pct Auto 0.4 % (0.0-0.4); Lymphocytes Absolute Auto 1.7 X10*3/uL (1.2-4.9); Lymphocytes Percent Auto 18.3 % (20-40); Mean Corpuscular HGB Conc 32.9 g/dl (31.0-36.0); Mean Corpuscular Hemoglobin 30.4 pg (27.0-33.0); Mean Corpuscular Volume 92.5 fL (80.0-98.0); Mean Platelet Volume 9.7 fL (9.4-12.4); Monocytes Absolute Auto 0.7 X10*3/uL (0.1-1.2); Monocytes Percent Auto 7.5 % (2-11); Neutrophils Absolute Auto 6.7 x10*3/uL (2.0-8.3); Neutrophils Percent Auto 72.5 % (45-73); Platelet Count 235 X10*3/uL (160-400); Red Blood Count 5.75 X10*6/uL (4.60-5.80); Red Cell Distribution Width 14.1 % (11.0-16.0); White Blood Count 9.3 X10*3/uL (4.8-10.8)
[2024-08-10 12:54] LABS: Bacteria Urine None Seen (None Seen); Hyaline Casts Urine 0-2 /LPF (0-2); RBC Urine 0-2 /HPF (0-2); Squamous Epithelial Cell Urine 0-2 /HPF (0-2); WBC Urine 0-5 /HPF (0-5)
[2024-08-10 13:11] LABS: Alanine Aminotransferase 18 U/L (0-40); Albumin Level 4.2 g/dL (3.5-5.0); Alkaline Phosphatase 68 U/L (39-117); Anion Gap 13 (12-20); Aspartate Amino Transferase 27 U/L (5-37); Bilirubin Total 0.5 mg/dL (0.0-1.0); Blood Urea Nitrogen 15 mg/dL (9-16); Calcium 9.2 mg/dL (8.4-10.2); Carbon Dioxide 31 mmol/L (22-29); Chloride 101 mmol/L (96-108); Cholesterol 139 mg/dL (<200); Estimated Glomerular Filt Rate > 60; Glucose Fasting 117 mg/dL (60-99); HDL Cholesterol 48 mg/dL (>40); LDL Cholesterol Calculated 80 mg/dL (<100); Potassium 5.2 mmol/L (3.3-5.1); Sodium 140 mmol/L (135-145); Total Protein 7.6 g/dL (6.5-8.0); Triglycerides 56 mg/dL (<150)
[2024-08-10 13:13] LABS: Creatinine Urine 49.75 mg/dL
[2024-08-10 13:27] LABS: TSH reflex Free T4 0.67 uIU/mL (0.32-4.0)
== END 2024-08-10 09:44 | disposition home or self-care (01) ==
LOC: HO.HMGCLDS 09:43
PROVIDERS: PCP Nurse Practitioner Family; Visit Provider Nurse Practitioner Family
DX: Z00.00 Encounter for general adult medical examination without abnormal findings (principal); E11.9 Type 2 diabetes mellitus without complications
CPT/HCPCS: 36415; 80053; 80061; 81001; 82043; 82570; 84443; 85025

== ENCOUNTER 2024-08-12 09:57 | Outpatient (REF) | payer BC, SELFPAY ==
--- OUTSIDE RECORDS SUMMARY | 2024-08-12 10:52 | XMS_ITS | Clinical Summary ---
Author Organization [facility] Facility Address [address] [address] Care Team Providers Care Police Captain Precinct Name Role Phone Silvano Tejada NP Primary Care Provider [phone] Allergies Active Allergy Reactions Criticality Noted Date Comments Acetaminophen 01/09/2022 Codeine 01/09/2022 Medications Aspirin 81 MG capsule Take 81 mg by mouth 1 (one) time each day 02/13/2012 Active Belbuca 750 MCG film Take 450 mcg by mouth every 12 (twelve) hours 12/15/2021 Active cyanocobalamin (VITAMIN B-12) 1000 MCG tablet Take 1,000 mcg by mouth 1 (one) time each day 04/03/2016 Active cholecalciferol (VITAMIN D-3) 25 MCG (1000 UT) tablet Take 50 mcg by mouth 1 (one) time each day 11/17/2020 Active gabapentin (NEURONTIN) 400 MG capsule Take 400 mg by mouth 3 (three) times a day if needed 05/08/2019 Active ibuprofen (ADVIL,MOTRIN) 800 MG tablet Take 800 mg by mouth every 12 (twelve) hours 12/20/2021 Active lisinopril 5 MG tablet Take 5 mg by mouth 1 (one) time each day 03/24/2014 Active Naloxegol Oxalate 25 MG tablet Take 25 mg by mouth 1 (one) time each day in the morning 04/03/2017 Active oxyCODONE (ROXICODONE) 5 MG immediate release tablet Take 5 mg by mouth 1 (one) time each day if needed 12/24/2021 Active cyclobenzaprine (FLEXERIL) 10 MG tablet Take 10 mg by mouth 3 (three) times a day if needed for muscle spasms Active Active Problems Problem Noted Date Diagnosed Date Type 2 diabetes mellitus without complication Tobacco dependence syndrome 03/11/2022 Abdominal aortic aneurysm 01/08/2022 Hypertensive disorder 01/08/2022 Stage 3b chronic kidney disease 01/08/2022 Family History Medical History Relation Comments Diabetes Sister Relation Status Comments Father brain aneurysm Mother cirrhosis Sister history of quadr uple bypass Social History Tobacco Use Types Packs/Day Years Used Date Smoking Tobacco: Never Assessed Sex and Gender Information Value Date Recorded Sex Assigned at Not on file Legal Sex Male 8:56 AM EDT Gender Identity Not on file Sexual Orientation Not on file Plan of Treatment Health Maintenance Due Date Last Done Comments Pneumococcal Vaccine: 65+ Ye ars (1 of 2 - PCV) 1964 Pneumococcal Vaccine: Pediat rics (0 to 5 Years) and At-Risk Patients (6 to 64 Years) (1 of 2 - PCV) 1964 Colorectal Cancer Screening: Annual FOBT 12/28/2007 Colorectal Cancer Screening: Colonoscopy 12/28/2007 Colorectal Cancer Screening: Sigmoidoscopy 12/28/2007 Diabetes: Hemoglobin A1C 03/11/2022 Diabetes: Ophthalmology Exam 03/11/2022 Diabetes: Pedal Pulse Checked 03/11/2022 Diabetes: Sensory Foot Exam 03/11/2022 Diabetes: Visual Foot Exam 03/11/2022 Influenza Vaccine (#1) 2024 Hepatitis B Vaccine Aged Out No longe r eligible based on patient's age to complete this topic Insurance [facility] ([id number]) [facility] ([id number]) Care Teams Police Captain Precinct Relationship Specialty Start Date End Date Silvano Tejada NP [address] [place] [address] PCP - General Nurse Practitioner 11/14/21
[2024-08-12 14:00] LABS: Anion Gap 12 (12-20); Carbon Dioxide 30 mmol/L (22-29); Chloride 103 mmol/L (96-108); Potassium 5.4 mmol/L (3.3-5.1); Sodium 140 mmol/L (135-145)
== END 2024-08-12 09:58 | disposition home or self-care (01) ==
LOC: HO.HMGCLDS 09:57
PROVIDERS: PCP Nurse Practitioner Family; Visit Provider Nurse Practitioner Family
DX: E87.5 Hyperkalemia (principal)
CPT/HCPCS: 36415; 80051

== ENCOUNTER 2024-09-30 16:37 | Outpatient (REF) | payer BC, SELFPAY ==
--- NOTE | ~2024-09-30 | CT_ITS ---
CLINICAL HISTORY: F17.210 - Nicotine dependence, cigarettes, uncomplicated CT lung cancer screening (LDCT) Comparison: CT/SR - CT LUNG SCREENING - 04/20/22 14:30 EDT Technique: Axial CT images of the chest using low-dose technique. Referring provider counseled the patient on shared decision-making for LDCT screening. Additional counseling was provided on smoking cessation. Effective radiation dose total: DLP 62.9 mGycm, CTDIvol 1.7 mGy. Findings: Previously described nodules in the right upper lobe and right middle lobe are unchanged. No new nodules are noted. There is mild bronchial wall thickening consistent with bronchitis and relatively unchanged from the prior exam. There is severe coronary artery disease. There is a partially seen abdominal aortic stent. The patient is status post cholecystectomy. Other: Chronic bronchitis Impression: LungRADS 2 - Benign Appearance: Continue annual screening with low dose Chest CT in 12 months. ##L2# Category 1: Normal; continue annual screening Category 2: Benign appearance or behavior, continue annual screening Category 3: Probably benign, [address] recommended Category 4A: Suspicious, [address] recommended; may consider PET/CT Category 4B: Suspicious, Additional diagnostics and/or tissue sampling recommended Category 4X: Suspicious, Additional diagnostics and/or tissue sampling recommended Category 0: Recalls (incomplete screen due to Incomplete coverage, Noise, Respiratory motion, Expiration, Obscured by acute abnormality) This document has been electronically signed by: Roberto Pena MD on 10/02/2024 08:33:58
--- OUTSIDE RECORDS SUMMARY | 2024-09-30 18:39 | XMS_ITS | Continuity of Care Document ---
Author Organization [facility] Address [address] [place] [address]- Care Team Providers Care Pedicab Driver Name Role Phone Mallory CONNOR, Silvano Gandhi Primary Care Physician Encounter [facility] [place] ACCT R [id number] Date(s): 06/30/24 - 09/26/24 [facility] [address] [place] [address]- Attending Physician: Mitch Christopher MD Admitting Physician: Mitch Christopher MD Referring Physician: Mitch Christopher MD Encounter Type: Pre-Outpt Allergies, Adverse Reactions, Alerts Substance Criticality Severity [...] Refills, Maintenance, 12/13/20 5:45:00 PM EDT, Tablet, [facility]/pharmacy #[id number], Partial fill upon patient request if [...] Confirmed Active Failed back syndrome Confirmed Active Social History Social History Type Response Smoking Status 5-9 cigarettes (betw een 1/4 to 1/2 pack)/day in last 30 days entered on: 01/16/23 Sex Sex Representation Male (finding) Patient Care team information Care Team Personnel Name: Silvano Tejada NP Position: Reference Physician Member Role: PCP Address: [address] [place] [address] Telecom: Care Team Related Persons Name: MARIANELA, HERMANN Insurance Providers Guarantor name: AMINA MARIANELA Health Plan Information #: 1 Payer: [employer] [facility] ELECT Member Number: [id number] Policy Number: NA Group Number: [id number] Health Plan Information #: 2 Payer: [facility] ELECT Member Number: [id number] Policy Number: NA Group Number: NA
--- OUTSIDE RECORDS SUMMARY | 2024-09-30 18:40 | XMS_ITS | Clinical Summary ---
Author Organization [facility] Facility Address [address] [address] Care Team Providers Care Physician Name Role Phone Silvano Tejada NP Primary Care Provider [phone] Allergies Active Allergy Reactions Criticality Noted Date [...] patient's age to complete this topic Insurance [facility] MICHEL[facility]([id number]) [facility] PPO BLUE([id number]) Care Teams Physician Relationship Specialty Start Date End Date Silvano Tejada NP [address] [place] [address] PCP - General Nurse Practitioner 11/14/21
== END 2024-09-30 16:38 | disposition home or self-care (01) ==
LOC: HO.CT 16:37
PROVIDERS: PCP Nurse Practitioner Family; Visit Provider Physician Assistant Medical
DX: Z12.2 Encounter for screening for malignant neoplasm of respiratory organs (principal); F17.210 Nicotine dependence, cigarettes, uncomplicated
CPT/HCPCS: 71271

== ENCOUNTER → 2024-09-30 16:38 | Outpatient (BNV) | payer BC, SELFPAY | PROVIDERS: PCP Nurse Practitioner Family; Visit Provider Radiology Diagnostic Radiology | DX: F17.210 Nicotine dependence, cigarettes, uncomplicated (principal) | CPT/HCPCS: 71271 ==

== ENCOUNTER 2025-01-26 07:47 | Outpatient (AMB) | payer BC, SELFPAY ==
--- OUTSIDE RECORDS SUMMARY | 2025-01-26 07:50 | XMS_ITS | Clinical Summary ---
Author Organization [facility] Facility Address [address] [address] Care Team Providers Care Associate Embalmer/Funeral Director Name Role Phone Silvano Tejada NP Primary Care Provider [phone] Allergies Active Allergy Reactions Criticality Noted Date [...] Due Date Last Done Comments Pneumococcal Vaccine: 50+ Ye ars (1 of 2 - PCV) 1977 Colorectal Cancer Screening: Annual FOBT 12/28/2007 Colorectal Cancer Screening: Colonoscopy 12/28/2007 Colorectal Cancer Screening: Sigmoidoscopy 12/28/2007 Diabetes: Hemoglobin A1C 03/11/2022 Diabetes: Ophthalmology Exam 03/11/2022 Diabetes: Pedal Pulse Checked 03/11/2022 Diabetes: Sensory Foot Exam 03/11/2022 Diabetes: Visual Foot Exam 03/11/2022 Influenza Vaccine (#1) 2025 Hepatitis B Vaccine Aged Out No longe r eligible based on patient's age to complete this topic Insurance [facility] [employer]([id number]) [facility] [employer]([id number]) Care Teams Associate Embalmer/Funeral Director Relationship Specialty Start Date End Date Silvano Tejada NP [facility] [place] [address] PCP - General Nurse Practitioner 11/14/21
--- OUTSIDE RECORDS SUMMARY | 2025-01-26 07:50 | XMS_ITS | Patient Health Record ---
Author Organization [facility] Address [address] [place] [address] Care Team Providers Care Body Builder Apprentice Name Role Phone Silvano Jones Primary Care Provider Unav Conrad De Luna Unavailable [phone] Steven FLORES, [phone] [place] Unavailable Unavailable Allergies Allergen (clinical drug ingredient) Drug/Non Drug Allergy documented on EMR Reaction Allergy Type Onset Date Status codeine Codeine Sulfate n/vomiting Drug Allergy Active acetaminophen Tylenol stomach pain Drug Allergy Active Reason For Referral No Information Medications Medication SIG (Take, Route, Frequency, Duration) Notes Start Date End Date Status Vitamin D3 Complete Active Vitamin B12 Active Simvastatin 40 MG Oral; Duration: 90 Active Aspirin 81 81 MG 1 tablet Orally Once a day; Duration: 30 day(s) Active Lisinopril 5 MG Oral; Duration: 90 Active busPIRone HCl 5 MG Oral; Duration: 90 Active Xtampza ER 18 MG Oral; Duration: 30 Active Gabapentin 400 MG Oral; Duration: 30 Active Pentoxifylline ER 400 MG Oral; Duration: 90 Active oxyCODONE HCl 10 MG Oral; Duration: 30 Active Social History Tobacco Use: Social History Observation Description Date Details (start date - stop date) Current Smoker NA - NA Tobacco Use/Smoking Question Answer Notes Are you a: current smoker When did you start smoking? 1970 How often do you smoke cigarettes? every day How many cigarettes a day do you smoke? 6-10 Alcohol Screen Question Answer Notes Did you have a drink containing alcohol in the p ast year? No Points 0 Interpretation Negative Plan Of Treatment No Information Insurance Providers Payer Name Payer Address Payer Phone Subscriber Number Group Number Insured Name Patient Relationship to Insured Coverage Start Date Coverage End Date [employer] [address] [place] [address] [phone] [id number] Carlos Estrada Self - patient is the insured Medical (General) History Medical History History ICD Code anxiety Arthritis Back,Hip,and Knee pain Chicken pox High blood pressure Measles Mumps Irritable bowel syndrome Aortic aneurysm Surgical History Surgery Date(Month/Year) TINA ap/lat/lo 12/15/19
[2025-01-26 08:05] VITALS: BP 130/80; PULSE 83; O2SAT 94; BMI 32.0
--- NOTE | 2025-01-26 08:05 | A.OFFPC_ITS ---
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- alcohol swabs (Alcohol Prep Pads) 1 pad topical BID 90 days aspirin (Adult Aspirin Regimen) 81 mg PO DAILY atorvastatin 80 mg PO BEDTIME blood sugar diagnostic (FreeStyle Lite Strips) Use to check fasting blood sugar in morning and a random blood sugar during the day blood-glucose meter (FreeStyle Lite Meter kit) Use to check fasting blood sugar in morning and a random blood sugar during the day cholecalciferol (vitamin D3) 50 mcg PO DAILY cyanocobalamin (vitamin B-12) 1,000 mcg PO DAILY empagliflozin 25 mg PO DAILY gabapentin 800 mg PO TID lancets (FreeStyle Lancets) Use to check fasting blood sugar in morning and a random blood sugar during the day losartan 25 mg PO DAILY Tobacco use date assessed: 07/28/24 Fall risk assessment: No Falls in past year Last assessed Fall Risk: 01/26/25 Dental Screening Dental Screen Date: 07/28/24 HPI 6m follow up HPI Details Chief Complaint The patient presents for follow-up regarding diabetes management and reports abdominal pain. History of Present Illness The patient is a 64-year-old male presenting with follow-up for diabetes management. He reports experiencing diabetic neuropathy and abdominal pain. The patient's diabetes is currently managed with medication, and his recent HbA1c level is 6.9%. There is a plan to increase his Jardiance dosage from 10 mg to 25 mg to better control his blood glucose levels. He is due for several preventative care measures, including a colon cancer screening with Cologuard, which was initially sent back in July but has not yet been completed. The importance of completing this screening was reinforced during the visit. Additionally, the patient is aware that he is due for an eye examination and intends to schedule this appointment himself. The patient has a history of tobacco use, and his lungs were noted to be clear to auscultation bilaterally, with slightly diminished breath sounds. Hx of b12 def. will check levels, on B12 oral supplements Social History - Tobacco use: Patient is a smoker and i s part of a low-dose CT scan program. Health Maintenance - Colon cancer screening with Cologuard is pending completion. - Eye examination is due and patient natacha ns to schedule it. Review of Systems - Neurological: Reports diabetic neuropa thy. - Gastrointestinal: Reports abdominal pa in. -denies any cp, SOB, CASTILLO, blurred vision Physical Exam General: Cooperative, healthy appearing, comfortable, no acute distress and well developed Orientation: Patient oriented x3 Limitations: No limitations Head: Normal to inspection Ears: Hearing grossly normal bilaterally Nose: Normal external nose present Face and sinus: Normal facial exam Eyes: Appearance normal, both eyes and all related structures Neck: Normal visual inspection and Yes full ROM Respiratory: Slightly diminished breath sounds bilaterally, but lungs were fairly clear Cardiovascular: Regular rate and rhythm. Normal S1 and S2 GI: Normal to inspection. Soft to palpation and nontender Skin: No rashes or lesions noted Neuro: Patient oriented x3, some neuropathy present Extremities: Normal to inspection, feet intact, + sensation with use of monofilament Results Plan The patient's diabetes management plan includes increasing the dosage of Jardiance from 10 mg to 25 mg to improve glycemic control, with a follow-up scheduled in six months to assess the effectiveness of this adjustment. Preventative care measures were emphasized, including the completion of a colon cancer screening with Cologuard, which remains pending since July. The patient is also advised to schedule an eye examination, which he acknowledges is due. Given his history of tobacco use, participation in a low- dose CT scan program is noted as part of ongoing health maintenance. Discussion Notes I discussed with the patient the importance of managing his diabetes effectively, including the decision to increase his Jardiance dosage to better control his blood sugar levels. We reviewed the necessity of completing his colon cancer screening with Cologuard and scheduling an overdue eye examination. Additionally, we talked about his participation in the low-dose CT scan program due to his smoking history. Patient Instructions - Increase Jardiance dosage to 25 mg as prescribed. - Complete the colon cancer screening [facility] Cologuard as soon as possible. - Schedule and attend an eye examination . - Continue participation in the low-dose CT scan program. [facility] Medical History Nicotine dependence, cigarettes, uncomplicated Diabetes Rib pain on left side Lumbar spondylosis Failed back syndrome, lumbar HTN (hypertension) Surgical History History of lumbar surgery (~2014) History of endoscopy (~2008) History of colonoscopy (~2009) History of shoulder surgery (~2006) History of tonsillectomy History of AAA (abdominal aortic aneurysm) repair (~2020) History of cholecystectomy (~1989) Family History Father Brain aneurysm Mother Cirrhosis Sister History of quadruple bypass Diabetes mellitus Brother No problems noted. Brother No problems noted. Brother No problems noted. 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 Current occupational exposures/hazards: No Cognitive needs: No Hearing needs: No Vision needs: No Questionnaire Thrive Questionnaire Date Thrive assessed: 01/26/25 I am a: Patient What is your living situation today?: I have a place to live, but I am worried about losing it in the future Within the past 12 months, did the food you bought not last and you didn't have the money to get more?: Never true Within the past 12 months, did you worry whether your food would run out before you got money to buy more?: Never true Do you have trouble paying for medicines?: No Do you have trouble getting transportation to medical appointments?: No Do you have trouble paying your heating and electricity bill?: No Do you have trouble taking care of your child, family member or friend?: No Do you have trouble with day-to-day activities such as bathing, preparing meals, shopping, managing finances, etc.?: No Are you currently unemployed and looking for a job?: No Are you interested in more education?: No Please select the resources that you would like help with: None Currently or been in a relationship where the following occur: No concerns reported THRIVE Score: 1 RODERICK-7 AMB Questionnaire RODERICK-7 Date RODERICK - 7 assessed: 07/28/24 Source: Developed by Drs. Carlos Tan, Magui Petit, Robbie Patel and colleagues, with an educational ninoska from [employer]. Physical exam (Primary Care) Vital Signs: Last Vital Signs Pulse 83 01/26/25 08:05 BP 130/80 01/26/25 08:05 Pulse Ox 94 01/26/25 08:05 BMI result Body Mass Index 32.0 Tobacco/Smoking Status: Tobacco use Status Tobacco use date assessed 07/28/24 01/26/25 08:06 Patient Tobacco Use Status Current everyday Tobacco 01/26/25 08:06 e-Cigarette/Vaping Use Never Used 01/26/25 08:06 Thrive Assessment: Date of Thrive Assessment Date Thrive assessed 01/26/25 01/26/25 08:06 Currently or been in a relationship where the following occur: No concerns reported Results AMB Hemoglobin A1c AMB Hemoglobin A1c 6.9 % Last Edit by Christiano Fernandez CMA on 01/26/25 08: 28 Coding Level of Care Code Est Pt Level 3 (91040) Diagnoses Diabetes E11.9 Screening PSA (prostate specific antigen) Z12.5 B12 deficiency E53.8 Assessment & Plan Assessment & Plan (1) Diabetes: Code(s): E11.9 - Type 2 diabetes mellitus without complications Category: Medical (2) Screening PSA (prostate specific antigen): Code(s): Z12.5 - Encounter for screening for malignant neoplasm of prostate Category: Medical (3) B12 deficiency: Code(s): E53.8 - Deficiency of other specified B group vitamins Category: Medical Plan . Orders: Orders Prostate Specific Antigen Scr Today Z12.5 - Encounter for screening for malignant neoplasm of prostate Complete Blood Count Auto Diff Today E11.9 - Type 2 diabetes mellitus without complications TSH reflex Free T4 Today E11.9 - Type 2 diabetes mellitus without complications Vitamin B12 and Folate Today E53.8 - Deficiency of other specified B group vitamins Comprehensive [place]. Panel Fast Today E11.9 - Type 2 diabetes mellitus without complications UA CC w/rflx Micro + Cult Today E11.9 - Type 2 diabetes mellitus without complications Lipid Panel Today E11.9 - Type 2 diabetes mellitus without complications AMB Hemoglobin A1c Today Z13.9 - Encounter for screening, unspecified Medications: Changed From empagliflozin (Jardiance) 10 mg PO DAILY 90 tabs 1RF To empagliflozin 25 mg PO DAILY 90 tabs 1RF
== END 2025-01-26 08:35 | disposition home or self-care (01) ==
LOC: HO.HMCC 07:48
PROVIDERS: PCP Nurse Practitioner Family; Visit Provider Nurse Practitioner Family
DX: E11.9 Type 2 diabetes mellitus without complications (principal); Z12.5 Encounter for screening for malignant neoplasm of prostate; E53.8 Deficiency of other specified B group vitamins; Z13.9 Encounter for screening, unspecified

== ENCOUNTER → 2025-01-26 07:47 | Outpatient (BNVA) | payer BC, SELFPAY | PROVIDERS: PCP Nurse Practitioner Family; Visit Provider Nurse Practitioner Family | DX: E11.9 Type 2 diabetes mellitus without complications (principal); E53.8 Deficiency of other specified B group vitamins; Z79.84 Long term (current) use of oral hypoglycemic drugs | CPT/HCPCS: 83036 ==

== ENCOUNTER 2025-04-06 09:48 | Outpatient (REF) | payer BC, SELFPAY ==
--- OUTSIDE RECORDS SUMMARY | 2025-04-06 12:38 | XMS_ITS | Patient Health Record ---
Author Organization [facility] [address] Address [address] [place] [address] Care Team Providers Care Supervisor Payroll Name Role Phone Silvano Jones Primary Care Provider Unav Conrad De Luna Unavailable [phone] Steven FLORES, [phone] [place] Unavailable Unavailable Allergies Allergen (clinical drug ingredient) [...] End Date [employer] [address] [place] [address] [id number] [phone] [id number] Carlos Estrada Self - patient is the insured Medical (General) History Medical History History ICD Code anxiety Arthritis Back,Hip,and Knee pain Chicken pox High blood pressure Measles Mumps Irritable bowel syndrome Aortic aneurysm Surgical History Surgery Date(Month/Year) TINA ap/lat/lo 12/15/19
--- OUTSIDE RECORDS SUMMARY | 2025-04-06 12:38 | XMS_ITS | Clinical Summary ---
Author Organization [facility] Facility Address [address] [address] Care Team Providers Care Standard Machine Stitcher Name Role Phone Silvano Tejada NP Primary Care Provider [phone] Allergies Active Allergy Reactions Criticality Noted Date [...] patient's age to complete this topic Insurance [facility] Foreman([id number]) [facility] Foreman([id number]) Care Teams Standard Machine Stitcher Relationship Specialty Start Date End Date Silvano Tejada NP [facility] [place] [address] PCP - General Nurse Practitioner 11/14/21
[2025-04-06 13:19] LABS: Appearance Urine Clear; Glucose Urine UA >=1000 mg/dL (Negative); PH 6.0 (5.0-9.0); Specific Gravity - Urine 1.010 (1.005-1.025); UMIC TRIGGER UACC YES
[2025-04-06 13:25] LABS: UACC Culture Trigger YES
[2025-04-06 13:39] LABS: MANUAL DIFF FLAG NO
[2025-04-06 14:11] LABS: Hematocrit 49.2 % (42.0-52.0); Hemoglobin 16.2 g/dl (14.0-18.0); Imm Gran Abs Auto 0.04 X10*3/uL (0.00-0.03); Imm Gran Pct Auto 0.4 % (0.0-0.4); Lymphocytes Absolute Auto 2.9 X10*3/uL (1.2-4.9); Mean Corpuscular HGB Conc 32.9 g/dl (31.0-36.0); Mean Corpuscular Hemoglobin 29.9 pg (27.0-33.0); Mean Corpuscular Volume 90.9 fL (80.0-98.0); NRBC Abs Auto 0.000 X10*3/uL (0.0-0.012); NRBC Pct Auto 0.0 /100WBC (0.0-0.2); Platelet Count 229 X10*3/uL (160-400); Red Blood Count 5.41 X10*6/uL (4.60-5.80); White Blood Count 10.5 X10*3/uL (4.8-10.8)
[2025-04-06 14:17] LABS: Alanine Aminotransferase 20 U/L (0-40); Albumin Level 4.3 g/dL (3.5-5.0); Alkaline Phosphatase 81 U/L (39-117); Anion Gap 11 (12-20); Aspartate Amino Transferase 33 U/L (5-37); Blood Urea Nitrogen 15 mg/dL (9-16); Calcium 9.3 mg/dL (8.4-10.2); Carbon Dioxide 30 mmol/L (22-29); Chloride 103 mmol/L (96-108); Cholesterol 142 mg/dL (<200); Estimated Glomerular Filt Rate 56; HDL Cholesterol 46 mg/dL (>40); Potassium 4.3 mmol/L (3.3-5.1); Sodium 140 mmol/L (135-145); Total Protein 7.4 g/dL (6.5-8.0); Triglycerides 79 mg/dL (<150)
[2025-04-06 14:42] LABS: Folate 8.0 ng/mL (> or = 4.0); Vitamin B12 307 pg/mL (200-900)
== END 2025-04-06 09:49 | disposition home or self-care (01) ==
LOC: HO.HMGCLDS 09:48
PROVIDERS: PCP Nurse Practitioner Family; Visit Provider Nurse Practitioner Family
DX: Z12.5 Encounter for screening for malignant neoplasm of prostate (principal); E11.9 Type 2 diabetes mellitus without complications; E53.8 Deficiency of other specified B group vitamins
CPT/HCPCS: 36415; 80053; 80061; 81001; 82607; 82746; 84153; 84443; 85025; 87086